=== PATIENT | female | born 1950 | race Caucasian/White ===

== ENCOUNTER 2021-02-11 09:11 | Outpatient (REF) | payer MEDICARE, SELFPAY ==
--- NOTE | ~2021-02-11 | MR_ITS ---
EXAMINATION: MR CERVICAL SPINE WITHOUT CONTRAST CLINICAL INFORMATION: Stiff neck. Pain. COMPARISON: None TECHNIQUE: MRI of the cervical spine was obtained using routine sequences without contrast. FINDINGS: VERTEBRAL BODIES AND PARASPINAL SOFT TISSUES: The marrow signal is within normal limits. There is moderate edema in the right articular processes at the C4-C5 level, presumably reactive; minimal anterolisthesis also evident at this level. There are no compression fractures. Mild rightward curvature of the cervical spine centered at the C5 level. Moderate multilevel right-sided facet arthrosis most evident from the C3-C5 levels. The paraspinal soft tissues appear normal. The vertebral artery flow voids are maintained. The imaged lung apices are grossly clear. CERVICOMEDULLARY JUNCTION AND VISUALIZED POSTERIOR FOSSA: The craniovertebral junction and imaged portions of the brain parenchyma appear normal. No cord signal abnormality or syrinx is seen. SPINAL LEVELS: C2-C3: No significant disc pathology. Ankylosis of the left articular process. No central canal stenosis or foraminal narrowing. C3-C4: Very mild anterior subluxation with moderate hypertrophic facet arthropathy. No central canal stenosis or significant foraminal encroachment. No focal disc protrusion. C4-C5: Mild anterolisthesis and severe right-sided facet arthropathy with edema in the articular processes, presumably reactive. No central canal stenosis or foraminal narrowing. C5-C6: Broad-based posterior disc bulge and shallow central disc protrusion mildly impressing upon the ventral cord. Mild central canal stenosis with thickening of the ligamentum flavum posteriorly. Severe left foraminal narrowing. C6-C7: No disc pathology. No central canal stenosis or foraminal narrowing. C7-T1: Well-hydrated normal appearance of the disc without central canal stenosis. [id number] facet arthropathy. Patent foramina. MR/MR cervical spine wo con IMPRESSION: Mild central canal stenosis and severe left foraminal narrowing with a shallow central disc protrusion and disc-osteophyte complex at C5-C6. Mild anterolisthesis and severe right-sided facet arthropathy with reactive marrow edema in the articular processes at the C4-C5 level. Moderate facet degeneration at the C3-C4 level with a minimal anterolisthesis. No central canal stenosis or foraminal narrowing.
== END 2021-02-11 09:12 | disposition home or self-care (01) ==
LOC: HO.MRI 09:11
PROVIDERS: PCP Internal Medicine; Visit Provider Internal Medicine
DX: M54.12 Radiculopathy, cervical region (principal)
CPT/HCPCS: 72141

== ENCOUNTER 2021-07-09 10:49 | Outpatient (REF) | payer MEDICARE, SELFPAY ==
--- NOTE | ~2021-07-09 | MM_ITS ---
EXAMINATION: BONE DENSITOMETRY CLINICAL INDICATION: Other specified disorders of bone density and structure. COMPARISON: Baseline BD dated 06/17/2019. TECHNIQUE: Using a [employer] DXA System (software version: 13.1) manufactured by [employer], dual-energy x-ray absorptiometry was performed of the lumbar spine and left hip. The images are of good technical quality. Summary results are attached. FINDINGS: AP SPINE L1-L4: Current: BMD 1.407 g/cm2, Z-score 3.6, T-score 1.9, normal, 0.9% increase from baseline (<5% change is not significant). Baseline: BMD 1.394 g/cm2. LEFT FEMUR, NECK: Current: BMD 0.850 g/cm2, Z-score 0.4, T-score -1.4, osteopenia. Baseline: BMD 0.814 g/cm2. LEFT FEMUR, TOTAL: Current: BMD 0.881 g/cm2, Z-score 0.5, T-score -1.0, normal, 2.0% decrease from baseline (<5% change is not significant). Baseline: BMD 0.899 g/cm2. IDENTIFIED RISK FACTORS: Menopause, left oophorectomy. HISTORY OF FRACTURE: None listed. MEDICATIONS: Calcium supplements or multivitamin, vitamin D. MM/XR DEXA axial skeleton IMPRESSION: 1. DIAGNOSIS: Osteopenia based on the lowest T-score value of -1.4 in the femoral neck applying World Health Organization criteria. 2. 10-YEAR FRACTURE RISK PREDICTION, FRAX: Major osteoporotic fracture (clinical spine, forearm, hip or shoulder) 9.8%. Hip fracture 1.4%. 3. Treatment Recommendations: NOF guidelines recommend consideration for treatment in postmenopausal women and men age 50 and older presenting with the following: -A hip or vertebral (clinical or morphometric) fracture. -T-score less than or equal to -2.5 at the femoral neck or spine after appropriate evaluation to exclude secondary causes. -Low bone mass at the hip or spine and a 10-year fracture probability by FRAX of greater than or equal to 3% for hip fracture or greater than or equal to 20% for major osteoporotic fracture based on the [place] adapted WHO algorithm. 4. Other Recommendations: All treatment decisions require clinical judgment and consideration of individual patient factors, including patient preferences, comorbidities, previous drug use, risk factors not captured in the FRAX model (e.g. frailty, falls, vitamin D deficiency, increased bone turnover, interval significant decline in bone density) and possible under or overestimation of fracture risk by FRAX. Additional medical evaluation for secondary cause of low bone mineral density may be appropriate. FUTURE SCAN RECOMMENDATION: People with diagnosed cases of osteoporosis or at high risk for fracture should have regular bone mineral density tests. For patients eligible for Medicare, routine testing is allowed once every 2 years. The testing frequency can be increased to one year for patients who have rapidly progressing disease, those who are receiving or discontinuing medical therapy to restore bone mass, or have additional risk factors.
== END 2021-07-09 10:50 | disposition home or self-care (01) ==
LOC: HO.MAMMO 10:49
PROVIDERS: PCP Internal Medicine; Visit Provider Internal Medicine
DX: Z13.820 Encounter for screening for osteoporosis (principal); M85.80 Other specified disorders of bone density and structure, unspecified site; Z78.0 Asymptomatic menopausal state; Z79.899 Other long term (current) drug therapy
CPT/HCPCS: 77080

== ENCOUNTER 2021-09-05 08:43 | Outpatient (REF) | payer MEDICARE, SELFPAY ==
--- NOTE | ~2021-09-05 | US_ITS ---
EXAMINATION: US EXTRACRANIAL CAROTID DUPLEX, BILATERAL CLINICAL INFORMATION: Hyperlipidemia. COMPARISON: None TECHNIQUE: Real-time ultrasound and Doppler techniques (integrating B-mode 2-D vascular images, Doppler spectral analysis and color-flow Doppler imaging) were utilized to interrogate the extracranial carotid arteries, the vertebral arteries and proximal subclavian arteries bilaterally. The degree of stenosis is determined by criteria similar to NASCET. FINDINGS: Right Side: 1. There is no atherosclerotic plaque seen in the bifurcation/proximal ICA region. 2. The common carotid artery PSV proximally is 116 cm/s and distally 112 cm/s. 3. The proximal internal carotid artery velocities are 98 cm/s systolic and 24 cm/s diastolic. 4. The proximal external carotid artery PSV is 106 cm/s. 5. The vertebral artery shows antegrade flow. 6. The subclavian artery waveforms are normal. Left Side: 1. There is no atherosclerotic plaque seen in the bifurcation/proximal ICA region. 2. The common carotid artery PSV proximally is 109 cm/s and distally 97 cm/s. 3. The proximal internal carotid artery velocities are 80 cm/s systolic and 26 cm/s diastolic. 4. The proximal external carotid artery PSV is 104 cm/s. 5. The vertebral artery shows antegrade flow. 6. The subclavian artery waveforms are normal. US/US carotid duplex BI IMPRESSION: 1. RIGHT: Normal right internal carotid artery without atherosclerotic plaque or hemodynamically significant stenosis. 2. LEFT: Normal left internal carotid artery without atherosclerotic plaque or hemodynamically significant stenosis.
== END 2021-09-05 08:44 | disposition home or self-care (01) ==
LOC: HO.HMGCX 08:43
PROVIDERS: PCP Internal Medicine; Visit Provider Internal Medicine
DX: E78.5 Hyperlipidemia, unspecified (principal); R42 Dizziness and giddiness
CPT/HCPCS: 93880

== ENCOUNTER 2022-04-08 08:56 | Outpatient (REF) | payer MEDICARE, SELFPAY ==
[2022-04-08 11:35] LABS: Hemoglobin 13.3 g/dl (12.0-16.0); Mean Corpuscular HGB Conc 33.3 g/dl (31.0-35.0); Mean Corpuscular Hemoglobin 29.2 pg (27.0-33.0); Mean Corpuscular Volume 87.9 fL (80.0-98.0); Mean Platelet Volume 9.5 fL (9.4-12.3); Platelet Count 254 X10*3/uL (160-400); Red Blood Count 4.55 X10*6/uL (4.20-5.50); Red Cell Distribution Width 12.6 % (11.0-16.0); White Blood Count 5.1 X10*3/uL (4.8-10.8)
[2022-04-08 11:49] LABS: Appearance Urine HAZY; Color Urine YELLOW; Glucose Urine UA NEG (NEG); Leukocyte Esterase Urine NEG (NEG); Nitrite Urine NEG (NEG); PH 7.5 (5.0-8.0); Urine Blood NEG (NEG); Urine Ketones NEG (NEG); Urine Protein NEG (NEG-TRACE)
[2022-04-08 11:58] LABS: Alanine Aminotransferase 35 U/L (0-31); Albumin Level 4.5 g/dL (3.5-5.0); Alkaline Phosphatase 44 U/L (39-117); Anion Gap 9 (12-20); Aspartate Amino Transferase 29 U/L (5-31); Bilirubin Total 0.5 mg/dL (0.0-1.0); Blood Urea Nitrogen 13 mg/dL (9-16); Calcium 9.3 mg/dL (8.4-10.2); Carbon Dioxide 29 mmol/L (22-29); Chloride 107 mmol/L (96-108); Cholesterol 206 mg/dL; Estimated Glomerular Filt Rate > 60; Glucose Fasting 95 mg/dL (60-99); HDL Cholesterol 71 mg/dL; LDL Cholesterol Calculated 123 mg/dl; Potassium 4.8 mmol/L (3.3-5.1); Sodium 140 mmol/L (135-145); Total Protein 7.1 g/dL (6.5-8.0); Triglycerides 64 mg/dL
[2022-04-08 12:03] LABS: TSH reflex Free T4 0.61 uIU/mL (0.32-4.0)
== END 2022-04-08 08:57 | disposition home or self-care (01) ==
LOC: HO.HMGCLDS 08:56
PROVIDERS: PCP Internal Medicine; Visit Provider Internal Medicine
DX: E78.5 Hyperlipidemia, unspecified (principal)
CPT/HCPCS: 36415; 80053; 80061; 81003; 84443; 85027

== ENCOUNTER 2023-06-11 09:00 | Outpatient (AMB) | payer MEDICARE, SELFPAY ==
--- NOTE | 2023-06-11 09:10 | A.OFFPC_ITS ---
Vital Signs 06/11/23 09:12 Height 5 ft 2 in Weight 145 lb BMI 26.5 BP 118/76 Blood Pressure Location Lt brachial Position Sitting Pulse 78 Pulse Source Pulse Oximeter Pulse Oximetry (%) 98 Oxygen Delivery Method Room Air Intake Visit Reasons: annual Intake Note: Pt is here today for PE. Allergies No Known Allergies Allergy (Verified 06/11/23 09:17) Medication List - Last Reconciled 06/11/23 by Lala Jama MD acyclovir 5% 1 appl topical 6XD atorvastatin 20 mg PO DAILY denosumab 60 mg subcut [id number] fluoxetine 10 mg PO DAILY meclizine (Medi-Meclizine) 25 mg PO TID methenamine hippurate 1 g PO BID pantoprazole 20 mg PO DAILY zolpidem 5 mg PO BEDTIME Tobacco use date assessed: 06/11/23 Fall risk assessment: No Falls in past year Last assessed Fall Risk: 06/11/23 Dental Screening Dental Screen Date: 06/11/23 Did you have a dental visit in the last 12 months?: Yes Did you have a dental problem in the last 6 months where you did not have access to dental care?: No Was dental information given to patient?: Patient has dentist HPI annual HPI Details Pt presents for PE. She complains of chronic lower back pain worse when walking or standing for long time. She denied radiating to lower extremities. She has been taking but Doppler so for chronic gastritis and hyperlipidemia is controlled on atorvastatin. Patient has been getting Prolia injection for osteopenia for 2 years and will have DEXA scheduled in June. [facility] Medical History (Updated 06/11/23 @ 10:04 by Lala Jama MD) Annual physical exam Anxiety and depression Cervical radiculopathy (~08/20/21) Hyperlipidemia Lip lesion Neck pain Nephrolithiasis Osteopenia Sciatica Screen for colon cancer Vertigo Surgical History H/O colonoscopy History of back surgery History of section History of oophorectomy, unilateral Family History Father Heart attack Mother Cancer Brother No problems noted. Son No problems noted. Daughter No problems noted. Social History Housing: House Alcohol intake: never Patient Tobacco Use Status: Never used Tobacco e-Cigarette/Vaping Use: Never Used Current occupational status: retired Cognitive needs: No Hearing needs: No Vision needs: Yes Questionnaire PHQ-9 Over the last 2 weeks, how often have you been bothered by any of the following problems? 1. Little interest or pleasure in doing things: not at all 2. Feeling down, depressed, or hopeless: not at all 3. Trouble falling or staying asleep, or sleeping too much: not at all 4. Feeling tired or having little energy: not at all 5. Poor appetite or overeating: not at all 6. Feeling bad about yourself - or that you are a failure or have let yourself or your family down: not at all 7. Trouble concentrating on things, such as reading the newspaper or watching television: not at all 8. Moving or speaking so slowly that other people could have noticed. Or the opposite - being so fidgety or restless that you have been moving around a lot more than usual: not at all 9. Thoughts that you would be better off or of hurting yourself in some way: not at all Total score: 0 Depression Screening Interpretation: Negative Source: Developed by Drs. Lyle Ramirez, Francisca Jonas, Nicolas Arias and colleagues, with an educational galen from [employer]. Thrive Questionnaire Date Thrive assessed: 06/11/23 I am a: Patient What is your living situation today?: I have a steady place to live Within the past 12 months, did the food you bought not last and you didn't have the money to get more?: Never true Within the past 12 months, did you worry whether your food would run out before you got money to buy more?: Never true Do you have trouble paying for medicines?: No Do you have trouble getting transportation to medical appointments?: No Do you have trouble paying your heating and electricity bill?: No Do you have trouble taking care of your child, family member or friend?: No Do you have trouble with day-to-day activities such as bathing, preparing meals, shopping, managing finances, etc.?: No Are you currently unemployed and looking for a job?: No Are you interested in more education?: No Please select the resources that you would like help with: None Currently or been in a relationship where the following occur: no concerns reported AUDIT C Alcohol Use Questionnaire (AUDIT-C) 1. How often do you have a drink containing alcohol?: Never 3. How often do you have six or more drinks on one occasion?: Never Total Score: 0 MICHEL-7 AMB Questionnaire MICHEL-7 Date MICHEL - 7 assessed: 06/11/23 Feeling nervous, anxious, or on edge: 0 = Not at all Not being able to stop or control worryin = Not at all Worrying too much about different things: 0 = Not at all Trouble relaxin = Not at all Being so restless that it is hard to sit still: 0 = Not at all Becoming easily annoyed or irritable: 0 = Not at all Feeling afraid as if something awful might happen: 0 = Not at all Total MICHEL-7 score (0-4 normal; 5-9 mild; 10-14 moderate; 15-21 severe): 0 Source: Developed by Drs. Lyle Ramirez, Francisca Jonas, Nicolas Arias and colleagues, with an educational galen from [employer]. Review of Systems Const All systems reviewed & are unremarkable except as noted in HPI and below Reports no additional complaints Eyes Reports no additional complaints ENT Reports no additional complaints Card Reports no additional complaints Resp Reports no additional complaints GI Reports no additional complaints Reports no additional complaints Physical exam (Primary Care) Vital Signs: Last Vital Signs Pulse 78 06/11/23 09:12 BP 118/76 06/11/23 09:12 Pulse Ox 98 06/11/23 09:12 Oxygen Delivery Method Room Air 06/11/23 09:12 BMI result Body Mass Index 26.5 Tobacco/Smoking Status: Tobacco use Status Tobacco use date assessed 06/11/23 06/11/23 09:21 Patient Tobacco Use Status Never used Tobacco 06/11/23 09:10 e-Cigarette/Vaping Use Never Used 06/11/23 09:10 PHQ-9: PHQ-9 Score PHQ-9: Total score 0 06/11/23 09:23 Depression Screening Interpretation: Negative Thrive Assessment: Date of Thrive Assessment Date Thrive assessed 06/11/23 06/11/23 09:23 Currently or been in a relationship where the following occur: no concerns reported Const General: no acute distress [facility] Head: Yes normal to inspection Ears: hearing grossly normal bilaterally Face and sinus: Yes normal facial exam Mouth: Normal oral and palatal mucosa present Teeth and gingiva: dentition normal Throat: Yes posterior oropharynx normal Eyes General: appearance normal, both eyes and all related structures Pupils: Equal, round and reactive pupils present Neck Neck: Yes no lymphadenopathy and Yes supple Resp Effort & Inspection: normal respiratory effort Auscultation: clear to auscultation bilaterally Cardio Rhythm: regular rhythm Heart sounds: S1 normal heart sound present and S2 normal heart sound present GI Inspection: Yes normal to inspection Palpation (GI): Soft to palpation Percussion: Yes normal to percussion Auscultation: normal bowel sounds Neuro Cranial nerves: Yes Equal, round and reactive pupils present Extrem General: Yes no clubbing, cyanosis or edema Assessment and Plan Assessment & Plan (1) Annual physical exam: Code(s): Z00.00 - Encounter for general adult medical examination without abnormal findings Plan: Well-balanced diet regular exercise discussed with the patient. She had DEXA in June and will schedule mammogram. Patient is up-to-date with colonoscopy (2) Lower back pain: Code(s): M54.50 - Low back pain, unspecified Plan: For chronic lower back pain she will schedule an appointment for PT at [facility] . Patient will schedule appointment with Dr. Ridley if not improved after physical therapy (3) Hyperlipidemia: Code(s): E78.5 - Hyperlipidemia, unspecified Plan: Continue statin (4) Anxiety and depression: Code(s): F41.9 - Anxiety disorder, unspecified; F32.9 - Major depressive disorder, single episode, unspecified Plan: Continue fluoxetine (5) Osteopenia: Comment: DEXA 05/2019 osteopenia, Prolia inj Code(s): M85.80 - Other specified disorders of bone density and structure, unspecified site Plan: Continue Prolia vitamin-D supplement and check DEXA in June Orders: Orders XR DEXA appendicular skeleton Today Z00.00 - Encounter for general adult medical examination without abnormal findings PT Evaluation and Treatment Today M54.50 - Low back pain, unspecified [facility] [place]. Panel Fast 365 Days E78.5 - Hyperlipidemia, unspecified, M85.80 - Other specified disorders of bone density and structure, unspecified site, Z00.00 - Encounter for general adult medical examination without abnormal findings Lipid Panel 365 Days E78.5 - Hyperlipidemia, unspecified, M85.80 - Other specified disorders of bone density and structure, unspecified site, Z00.00 - Encounter for general adult medical examination without abnormal findings TSH reflex Free T4 365 Days E78.5 - Hyperlipidemia, unspecified, M85.80 - Other specified disorders of bone density and structure, unspecified site, Z00.00 - Encounter for general adult medical examination without abnormal findings Vitamin D 25-OH Total 365 Days E78.5 - Hyperlipidemia, unspecified, M85.80 - Other specified disorders of bone density and structure, unspecified site, Z00.00 - Encounter for general adult medical examination without abnormal findings Complete Blood Count Auto Diff 365 Days E78.5 - Hyperlipidemia, unspecified, M85.80 - Other specified disorders of bone density and structure, unspecified site, Z00.00 - Encounter for general adult medical examination without abnormal findings Medications: Refilled denosumab 60 mg subcut [id number] 1 mL 1RF Coding Level of Care Code Est Pt Prev Care >65y(58524) Diagnoses Annual physical exam Z00.00 Lower back pain M54.50 Hyperlipidemia E78.5 Anxiety and depression F41.9; F32.9 Osteopenia M85.80
[2023-06-11 09:12] VITALS: BP 118/76; PULSE 78; O2SAT 98; BMI 26.5
== END 2023-06-11 10:05 | disposition home or self-care (01) ==
PROVIDERS: PCP Internal Medicine; Visit Provider Internal Medicine
DX: M85.80 Other specified disorders of bone density and structure, unspecified site (principal); M54.50 Low back pain, unspecified; F32.9 Major depressive disorder, single episode, unspecified; F41.9 Anxiety disorder, unspecified; Z68.26 Body mass index [BMI] 26.0-26.9, adult; E78.5 Hyperlipidemia, unspecified
CPT/HCPCS: 99214

== ENCOUNTER 2023-07-02 09:45 | Outpatient (AMB) | payer MEDICARE, SELFPAY ==
[2023-07-02 09:47] VITALS: BP 124/78; PULSE 75; O2SAT 98; BMI 26.5
--- NOTE | 2023-07-02 09:47 | A.OFFPC_ITS ---
Vital Signs 07/02/23 09:47 Height 5 ft 2 in Weight 145 lb BMI 26.5 BP 124/78 Blood Pressure Location Lt brachial Position Sitting Pulse 75 Pulse Source Pulse Oximeter Pulse Oximetry (%) 98 Oxygen Delivery Method Room Air Intake Visit Reasons: Follow up after walk in/lump on hand Intake Note: Pt is here today for a follow up visit after being seen in a walk in. Pt fell down the stairs and injured her R arm.Pt has a lump on her L arm. Allergies No Known Allergies Allergy (Verified 07/02/23 09:53) Medication List - Last Reconciled 07/02/23 by Lala Jama MD acyclovir 5% 1 appl topical 6XD atorvastatin 20 mg PO DAILY denosumab 60 mg subcut [id number] fluoxetine 10 mg PO DAILY meclizine (Medi-Meclizine) 25 mg PO TID methenamine hippurate 1 g PO BID pantoprazole 20 mg PO DAILY zolpidem 5 mg PO BEDTIME Tobacco use date assessed: 06/11/23 HPI Follow up after walk in/lump on hand HPI Details Pt presents for f/u after a fall 2 weeks ago, no head injury, no LOC. Pt c/o R arm bruises and hemangioma slowly healing. Pt c/o L anterior varicose vein getting painful and larger. [facility] Medical History Annual physical exam Anxiety and depression Cervical radiculopathy (~08/20/21) Hyperlipidemia Lip lesion Neck pain Nephrolithiasis Osteopenia Sciatica Screen for colon cancer Vertigo Surgical History H/O colonoscopy History of back surgery History of section History of oophorectomy, unilateral Family History Father Heart attack Mother Cancer Brother No problems noted. Son No problems noted. Daughter No problems noted. Social History Housing: House Alcohol intake: never Patient Tobacco Use Status: Never used Tobacco e-Cigarette/Vaping Use: Never Used Current occupational status: retired Cognitive needs: No Hearing needs: No Vision needs: Yes Questionnaire Thrive Questionnaire Date Thrive assessed: 06/11/23 MICHEL-7 AMB Questionnaire MICHEL-7 Date MICHEL - 7 assessed: 06/11/23 Source: Developed by Drs. Lyle Ramirez, Francisca Jonas, Nicolas Arias and colleagues, with an educational galen from [employer]. Review of Systems Const All systems reviewed & are unremarkable except as noted in HPI and below Reports no additional complaints Eyes Reports no additional complaints ENT Reports no additional complaints Card Reports no additional complaints Resp Reports no additional complaints GI Reports no additional complaints Physical exam (Primary Care) Vital Signs: Last Vital Signs Pulse 75 07/02/23 09:47 BP 124/78 07/02/23 09:47 Pulse Ox 98 07/02/23 09:47 Oxygen Delivery Method Room Air 07/02/23 09:47 BMI result Body Mass Index 26.5 Tobacco/Smoking Status: Tobacco use Status Tobacco use date assessed 06/11/23 07/02/23 09:52 Patient Tobacco Use Status Never used Tobacco 07/02/23 09:52 e-Cigarette/Vaping Use Never Used 07/02/23 09:52 Thrive Assessment: Date of Thrive Assessment Date Thrive assessed 06/11/23 07/02/23 09:52 Const General: no acute distress HENMT Face and sinus: Yes normal facial exam Eyes General: appearance normal, both eyes and all related structures Neck Neck: Yes supple Resp Effort & Inspection: normal respiratory effort Auscultation: clear to auscultation bilaterally Cardio Rhythm: regular rhythm Heart sounds: S1 normal heart sound present and S2 normal heart sound present Extrem Other: R inner forearm hemangioma 5cm x 5 cm and bruising, R elbow and shoulder with FROM. Assessment and Plan Assessment & Plan (1) Varicose vein of leg: Code(s): I83.90 - Asymptomatic varicose veins of unspecified lower extremity Plan: refer to vascular surgery (2) Multiple bruises: Code(s): T07.XXXA - Unspecified multiple injuries, initial encounter Plan: Fall prevention discussed with the patient Orders: Referrals Vascular Surgery Referral I83.90 - Asymptomatic varicose veins of unspecified lower extremity Coding Level of Care Code Est Pt Level 3 (10732) Diagnoses Varicose vein of leg I83.90 Multiple bruises T07.XXXA
== END 2023-07-02 10:39 | disposition home or self-care (01) ==
PROVIDERS: PCP Internal Medicine; Visit Provider Internal Medicine
DX: I83.90 Asymptomatic varicose veins of unspecified lower extremity (principal); T07.XXXA Unspecified multiple injuries, initial encounter
CPT/HCPCS: 99213

== ENCOUNTER 2023-07-02 18:00 | Outpatient (REF) | payer MEDICARE, SELFPAY ==
--- NOTE | ~2023-07-02 | MR_ITS ---
EXAMINATION: MR LUMBAR SPINE WITHOUT CONTRAST CLINICAL INFORMATION: 72-year-old with lumbar radiculopathy. Self-reported midline low back pain and history of prior surgery. COMPARISON: None available. TECHNIQUE: MRI of the lumbar spine was obtained using routine sequences without contrast. FINDINGS: Coronal Alignment: Szxo-jl-btkjhhzm mid lumbar levoscoliosis. Sagittal Alignment: 4 mm of grade 1 degenerative spondylolisthesis at L4-L5 is noted without spondylolysis. Lordotic curvature is maintained centered at L3-L4. Lumbosacral Junction: Normal. There are 5 fdh-ltz-okbgmbe lumbar-type vertebral bodies. Vertebral Bodies: Vertebral body heights are well-maintained. Disc Spaces and Endplates: Xpyg-rv-wuazifke disc space height loss at L5-S1 with disc desiccation, endplate irregularity and spondylosis. Minimal intradiscal vacuum disc phenomenon suspected. Disc desiccation at L4-L5 without significant disc space height loss. Mild spondylosis. Mild disc volume loss at L3-L4 with disc desiccation and minor spondylosis. Disc desiccation at L2-L3 with moderate spondylosis asymmetric to the right without significant disc space height loss with bridging osteophytosis noted. Spinal Canal: No abnormal developmental findings. Bone Marrow: Mild type I degenerative marrow signal changes seen along the endplates posteriorly at L3-L4. No suspicious marrow replacing process or other bone marrow edema. Scattered foci of focal fatty marrow replacement noted. Conus Medullaris: Terminates at L2. Morphology and signal is normal. Intradural Nerve Roots: Crowding of the intradural nerve roots at L3-L4 and L4-L5 consistent with spinal stenosis. Otherwise grossly unremarkable. L5-S1: Chronic post laminectomy changes are noted on the left. There is posterolateral disc osteophyte complex on the left and a small right subarticular to foraminal disc protrusion. No significant spinal canal stenosis. Moderate bilateral neural foraminal stenosis is noted, with impingement on the exiting left L5 nerve root. L4-L5: Unroofing of the posterior disc margin is noted, with pseudodisc bulging and small left-sided foraminal/extra foraminal disc protrusion and right-sided extraforaminal/foraminal disc protrusion. There is flattening of the dural sac and there is ligamentum flavum thickening with partial ossification of the ligamentum flavum on the right. There is mcrfsbvq-rj-gqlugi facet arthrosis, left more than right with interspinous ligament degeneration. There is idceggqf-pc-gzdawa central spinal canal stenosis with crowding of the intradural nerve roots, with the moderate-to- severe bilateral subarticular recess stenosis with encroachment on the traversing L5 nerve roots bilaterally. Mild left-sided neural foraminal narrowing noted without neural impingement. Otrz-ay-pinljacw right-sided neural foraminal narrowing noted with right lateral disc protrusion contacting the exiting right L4 nerve root. L3-L4: Concentric disc bulging is noted with flattening of the dural sac. Ligamentum flavum thickening with interspinous ligament degeneration is noted with lkobbefj-ul-yekele facet arthropathy right more than left. Severe central spinal canal stenosis is noted, with severe subarticular recess stenosis, with the marked crowding of the intradural nerve roots. There is ikgp-aa-balqjmli bilateral neural foraminal stenosis without definite neural impingement. L2-L3: Small left-sided foraminal/extraforaminal disc protrusion without neural impingement. Mild facet arthropathy on the left and ligament of flavum thickening noted with interspinous ligament degeneration. No significant spinal canal or neuroforaminal stenosis. L1-L2: Normal annular contour. Minor facet arthropathy noted on the left. No canal or neuroforaminal stenosis. Paravertebral and Included Extraspinal Soft Tissues: Jpvmbnos-do-zmsvwv posterior paraspinal muscle volume loss in the lower lumbar region. Otherwise the paravertebral soft tissues appear grossly unremarkable. MR/MR lumbar spine wo con IMPRESSION: 1.Fvqs-iy-vbhgsfcu mid lumbar levoscoliosis, with grade 1 degenerative spondylolisthesis at L4-L5 without spondylolysis. 2.Multilevel discogenic degenerative changes and spondylosis, with multilevel disc bulging and disc protrusions as detailed by level above with multilevel bilateral facet arthropathy and interspinous ligament degeneration. 3. Severe spinal canal stenosis at L3-L4 and moderate-to- severe spinal canal stenosis at L4-L5 with crowding of the intradural nerve roots and subarticular recesses. 4. Postoperative changes on the left at L5-S1 with posterolateral disc osteophyte complex on the left and small right subarticular to foraminal disc protrusion at this level with moderate bilateral neural foraminal stenosis and impingement on the exiting left L5 nerve root. 5. Zphp-er-ltiozwnv bilateral neural foraminal stenosis at L3-L4 and msji-wv-tubvpgpa right-sided neural foraminal stenosis at L4-L5 with right lateral disc protrusion contacting the exiting right L4 nerve root.
== END 2023-07-02 18:01 | disposition home or self-care (01) ==
LOC: HO.MRI 18:00
PROVIDERS: Visit Provider Internal Medicine
DX: M54.16 Radiculopathy, lumbar region (principal)
CPT/HCPCS: 72148

== ENCOUNTER 2023-07-14 09:07 | Outpatient (REF) | payer MEDICARE, SELFPAY ==
--- NOTE | ~2023-07-14 | MM_ITS ---
EXAMINATION: BONE DENSITOMETRY CLINICAL INDICATION: Other specified disorders of bone density and structure, unspecified site. COMPARISON: Previous BD dated 07/09/2021 and baseline BD dated 06/17/2019. TECHNIQUE: Using a [employer] DXA System (software version: 13.1) manufactured by [employer], dual-energy x-ray absorptiometry was performed of the lumbar spine and left hip. The images are of good technical quality. Summary results are attached. FINDINGS: LEFT FEMUR, NECK: Current: BMD 0.848 g/cm2, Z-score 0.5, T-score -1.4, osteopenia. Prior: BMD 0.850 g/cm2. Baseline: BMD 0.814 g/cm2. LEFT FEMUR, TOTAL: Current: BMD 0.900 g/cm2, Z-score 0.8, T-score -0.9, normal, 2.2% increase from previous, 0.1% increase from baseline (<5% change is not significant). Prior: BMD 0.881 g/cm2. Baseline: BMD 0.899 g/cm2. AP SPINE L1-L4: Current: BMD 1.437 g/cm2, Z-score 3.9, T-score 2.1, normal, 2.1% increase from previous, 3.1% increase from baseline (<5% change is not significant). Prior: BMD 1.407 g/cm2. Baseline: BMD 1.394 g/cm2. IDENTIFIED RISK FACTORS: Menopause, left oophorectomy. HISTORY OF FRACTURE: None listed. MEDICATIONS: Calcium supplements or multivitamin, vitamin D, Prolia. MM/XR DEXA axial skeleton IMPRESSION: 1. DIAGNOSIS: Osteopenia based on the lowest T-score value of -1.4 in the femoral neck applying World Health Organization criteria. 2. 10-YEAR FRACTURE RISK PREDICTION, FRAX: Not performed in this patient on estrogen or bone building treatments. 3. Treatment Recommendations: NOF guidelines recommend consideration for treatment in postmenopausal women and men age 50 and older presenting with the following: -A hip or vertebral (clinical or morphometric) fracture. -T-score less than or equal to -2.5 at the femoral neck or spine after appropriate evaluation to exclude secondary causes. -Low bone mass at the hip or spine and a 10-year fracture probability by FRAX of greater than or equal to 3% for hip fracture or greater than or equal to 20% for major osteoporotic fracture based on the [place] adapted WHO algorithm. 4. Other Recommendations: All treatment decisions require clinical judgment and consideration of individual patient factors, including patient preferences, comorbidities, previous drug use, risk factors not captured in the FRAX model (e.g. frailty, falls, vitamin D deficiency, increased bone turnover, interval significant decline in bone density) and possible under or overestimation of fracture risk by FRAX. Additional medical evaluation for secondary cause of low bone mineral density may be appropriate. FUTURE SCAN RECOMMENDATION: People with diagnosed cases of osteoporosis or at high risk for fracture should have regular bone mineral density tests. For patients eligible for Medicare, routine testing is allowed once every 2 years. The testing frequency can be increased to one year for patients who have rapidly progressing disease, those who are receiving or discontinuing medical therapy to restore bone mass, or have additional risk factors.
== END 2023-07-14 09:08 | disposition home or self-care (01) ==
LOC: HO.MAMMO 09:07
PROVIDERS: PCP Internal Medicine; Visit Provider Internal Medicine
DX: Z13.820 Encounter for screening for osteoporosis (principal); Z78.0 Asymptomatic menopausal state; M85.80 Other specified disorders of bone density and structure, unspecified site
CPT/HCPCS: 77080

== ENCOUNTER → 2023-07-14 09:09 | Outpatient (BNV) | payer MEDICARE, SELFPAY | PROVIDERS: PCP Internal Medicine; Visit Provider Radiology Diagnostic Radiology | DX: M85.80 Other specified disorders of bone density and structure, unspecified site (principal) | CPT/HCPCS: 77080 ==

== ENCOUNTER 2023-08-20 14:18 | Outpatient (AMB) | payer MEDICARE, SELFPAY ==
[2023-08-20 15:06] VITALS: BMI 26.5
--- NOTE | 2023-08-20 15:06 | A.OFFVIS_ITS ---
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 Pt states it gets big when she is on her feet, has not tried compression socks yet. 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 Complaints include pain over varicosities, swelling of lower extremities, cramping, fatigue, and heaviness of the lower extremities. It has been affecting there daily activities including walking. It is noted more so in left leg. In particular she is concerned about a left tibial varicose veins Patient denies any previous venous surgery or injections. Patient denies any history of DVT/ PE. Patient denies any history of phlebitis. Trial of compression includes - compression ymuz-wks-zneunwl They now present for vascular evaluation regarding their varicose veins. [facility] Medical History Lip lesion Vertigo Annual physical exam Screen for colon cancer Cervical radiculopathy (~08/20/21) Neck pain Sciatica Nephrolithiasis Osteopenia Anxiety and depression Hyperlipidemia Surgical History History of oophorectomy, unilateral History of back surgery History of section H/O colonoscopy Family History Father Heart attack Mother Cancer Brother No problems noted. Son No problems noted. Daughter No problems noted. Social History Housing: House Alcohol intake: never Patient Tobacco Use Status: Never used Tobacco e-Cigarette/Vaping Use: Never Used Current occupational status: retired Cognitive needs: No Hearing needs: No Vision needs: Yes Review of Systems Const Reports as per HPI ENT Reports no additional complaints Card Denies chest pain, Denies chest pain at rest and Denies chest pain with activity Resp Denies chest congestion and Denies cough GI Reports no additional complaints Musc Details: pain over varicosities, aching of lower extremities, swelling, cramping, heaviness and tiredness, itching Denies abnormal gait Skin/Breast Reports pruritus and Denies wounds Neuro Reports no additional complaints and Denies abnormal gait Psych Denies no additional complaints Physical Exam Vital Signs: BMI result Body Mass Index 26.5 Const General: cooperative, healthy appearing and comfortable Orientation/consciousness: oriented to person, oriented to place and oriented to time Neck Carotids: no bruits Chest Chest palpation & inspection: normal inspection of the chest and normal palpation of entire chest wall Resp Effort & Inspection: normal respiratory effort and able to speak in complete sentences Cardio Rate: regular rate Heart sounds: S1 normal heart sound present and S2 normal heart sound present Peripheral pulses: Peripheral pulses 2+ throughout GI Inspection: Yes normal to inspection Skin Other: +2 edema, large rope-like varicosities greater than 4 mm - left pretibial surface General skin exam: dry skin Neuro General: oriented to person, oriented to place and oriented to time Extrem Right lower extremity: full ROM, normal capillary refill and edema Left lower extremity: full ROM, normal capillary refill and edema Psych Mental Status: mental status grossly normal Assessment & Plan Assessment & Plan (1) Varicose veins of left lower extremity with inflammation: Code(s): I83.12 - Varicose veins of left lower extremity with inflammation Plan: In short, the patient has evidence of venous insufficiency. I have discussed the pathophysiology with the patient. In addition I have provided informa tional material regarding venous disease to the patient. We have discussed conservative measures including compression, elevation, and exercise. I have also provided a handout regarding appropriate use of compression stockings and where to purchase good compression stockings as well. I have taken the liberty of ordering venous insufficiency testing with the patient. They will follow up with me after testing. The patient had an opportunity to ask questions regarding the treatment plan. All questions were answered. Imaging studies, laboratory studies and physical exam results were discussed and reviewed in detail. No major barriers to understanding were identified. The patient expressed understanding and agreement with the above treatment plan. The patient is aware they should con tact our office by phone for worsening of the current condition or the appearance of new symptoms. Thank you for allowing me to participate in the vascular care of this patient. If you have any questions or concerns regarding the treatment for the above condition please do not hesitate to contact me. The office telephone contact is [phone]. This note is constructed using voice recognition software. While every effort has been made to ensure accuracy, bacteriology teacher errors may have been included. Thank you for allowing me to participate in the care of your patient. Yours sincerely, Mario Morrell MD, FACS, R.P.V.I. Orders: Orders US venous duplex LE BI 1 Week I83.12 - Varicose veins of left lower extremity with inflammation Coding Level of Care Code New Pt Level 4 (93906) Diagnoses Varicose veins of left lower extremity with inflammation I83.12
== END 2023-08-20 15:18 | disposition home or self-care (01) ==
PROVIDERS: PCP Internal Medicine; Visit Provider Surgery Vascular Surgery
DX: I83.12 Varicose veins of left lower extremity with inflammation (principal)
CPT/HCPCS: 99203

== ENCOUNTER → 2023-08-20 14:18 | Outpatient (BNVA) | payer MEDICARE, SELFPAY | PROVIDERS: PCP Internal Medicine; Visit Provider Surgery Vascular Surgery ==

== ENCOUNTER 2023-09-14 10:21 | Outpatient (REF) | payer MEDICARE, SELFPAY ==
--- NOTE | ~2023-09-14 | US_ITS ---
EXAMINATION: US LOWER EXTREMITY VENOUS (REFLUX EXAM), BILATERAL CLINICAL INDICATION: Chronic venous insufficiency with lower extremity varicose veins with inflammation COMPARISON: None. TECHNIQUE: Color flow triplex imaging and compression Doppler was performed to evaluate both the deep and the superficial systems bilaterally. To evaluate the superficial system, the examination was performed in the upright position. Color-flow Doppler ultrasound and compression ultrasound were utilized. In addition, maneuvers were utilized to demonstrate reflux. FINDINGS: 1. DEEP VENOUS ULTRASOUND OF THE RIGHT LOWER EXTREMITY: Common Femoral Vein: Compressible, normal respiratory variation and augmented flow. Femoral Vein: Compressible, normal color flow and augmentation. Popliteal Vein: Compressible, normal augmentation. Deep Reflux: There is no evidence of reflux in the deep system in either the common femoral vein or the popliteal vein. There is no evidence of a Wise's cyst. 2. SUPERFICIAL ULTRASOUND WITH DOPPLER OF RIGHT LOWER EXTREMITY: GREAT SAPHENOUS VEIN: Saphenofemoral Junction: 0.4 cm; Reflux: 0 ms Proximal Thigh: 0.3 cm; Reflux: 0 ms Mid Thigh: 0.3 cm; Reflux: 0 ms Above Knee: 0.2 cm; Reflux: 0 ms At Knee: 0.2 cm; Reflux: 0 ms Below Knee: 0.2 cm; Reflux: 2636 ms Mid Calf: 0.2 cm; Reflux: 0 ms Ankle: 0.2 cm; Reflux: 0 ms DUPLICATED MEDIAL GREAT SAPHENOUS VEIN: Diameter: None imaged Reflux: NA DUPLICATED LATERAL GREAT SAPHENOUS VEIN: Diameter: 0.3 cm Reflux: None SMALL SAPHENOUS VEIN: Proximal: 0.2 cm; Reflux: 0 ms Mid: 0.2 cm; reflux: 2036 ms Distal: 0.2 cm; Reflux: 0 ms VEIN OF GIACOMINI: Size: NA Reflux: NA PERFORATORS: Location: None imaged Size: NA Reflux: NA VARICOSITIES: Location: Mid thigh Size: 0.3 cm Reflux: None 3. DEEP VENOUS ULTRASOUND OF THE LEFT LOWER EXTREMITY: Common Femoral Vein: Compressible, normal respiratory variation and augmented flow. Femoral Vein: Compressible, normal color flow and augmentation. Popliteal Vein: Compressible, normal augmentation. Deep Reflux: There is no evidence of reflux in the deep system in either the common femoral vein or the popliteal vein. There is no evidence of a Wise's cyst. 4. SUPERFICIAL ULTRASOUND WITH DOPPLER OF LEFT LOWER EXTREMITY: GREAT SAPHENOUS VEIN: Saphenofemoral Junction: 0.5 cm; Reflux: 0 ms Proximal Thigh: 0.2 cm; Reflux: 0 ms Mid Thigh: 0.3 cm; Reflux: 2724 ms Above Knee: 0.4 cm; Reflux: 2452 ms At Knee: 0.4 cm; Reflux: 0 ms Below Knee: 0.4 cm; Reflux: 1276 ms Mid Calf: 0.2 cm; Reflux: 0 ms Ankle: 0.3 cm; Reflux: 0 ms DUPLICATED MEDIAL GREAT SAPHENOUS VEIN: Diameter: None imaged Reflux: NA DUPLICATED LATERAL GREAT SAPHENOUS VEIN: Diameter: None imaged Reflux: NA SMALL SAPHENOUS VEIN: Proximal: 0.2 cm; Reflux: 2892 ms Mid: 0.2 cm; reflux: 2708 ms Distal: 0.2 cm; Reflux: 0 ms VEIN OF GIACOMINI: Size: NA Reflux: NA PERFORATORS: Location: None significant Size: NA Reflux: NA VARICOSITIES: Location: None Imaged Size: NA Reflux: NA US/US venous duplex LE BI IMPRESSION: Right: Segmental area of reflux seen in the great saphenous vein in the proximal calf and in the small saphenous vein in the mid calf Left: Segmental areas of reflux in the great saphenous vein in the mid and distal thigh and proximal calf. Reflux in the small saphenous vein.
== END 2023-09-14 10:22 | disposition home or self-care (01) ==
LOC: HO.US 10:21
PROVIDERS: Visit Provider Surgery Vascular Surgery
DX: I83.12 Varicose veins of left lower extremity with inflammation (principal)
CPT/HCPCS: 93970

== ENCOUNTER 2023-10-06 08:51 | Outpatient (AMB) | payer MEDICARE, SELFPAY ==
--- NOTE | 2023-10-06 08:55 | MHC.OFFVIS ---
Intake Vital Signs 10/06/23 09:00 Height 5 ft 2 in Weight 145 lb BMI 26.5 Intake Visit Reasons: fuVI US 09/14/23 Intake Note: PT here for US FU on 09/14/23 hx of VV left LE pre-tibial area w/discoloration Pt says that she is doing ok and is not experiencing any pain or swelling at the moment Allergies No Known Allergies Allergy (Verified 10/06/23 09:00) HPI fuVI US 09/14/23 HPI Details Very pleasant 73-year-old female presents for follow-up regarding venous insufficiency. She noted this left pretibial varicosity which has been a source of pain and discomfort for her. She is quite concerned about her lower extremities as her father did have significant varicosities as well. She has had a trial of compression stockings with minimal relief. She now presents for follow-up. [facility] Medical History Lip lesion Vertigo Annual physical exam Screen for colon cancer Cervical radiculopathy (~08/20/21) Neck pain Sciatica Nephrolithiasis Osteopenia Anxiety and depression Hyperlipidemia Surgical History History of oophorectomy, unilateral History of back surgery History of section H/O colonoscopy Family History Father Heart attack Mother Cancer Brother No problems noted. Son No problems noted. Daughter No problems noted. Social History Housing: House Alcohol intake: never Patient Tobacco Use Status: Never used Tobacco e-Cigarette/Vaping Use: Never Used Current occupational status: retired Cognitive needs: No Hearing needs: No Vision needs: Yes Review of Systems Const Reports as per HPI ENT Reports no additional complaints Card Denies chest pain, Denies chest pain at rest and Denies chest pain with activity Resp Denies chest congestion and Denies cough GI Reports no additional complaints Musc Details: pain over varicosities, aching of lower extremities, swelling, cramping, heaviness and tiredness, itching Denies abnormal gait Skin/Breast Reports pruritus and Denies wounds Neuro Reports no additional complaints and Denies abnormal gait Psych Denies no additional complaints Physical Exam Vital Signs: BMI result Body Mass Index 26.5 Const General: cooperative, healthy appearing and comfortable Orientation/consciousness: oriented to person, oriented to place and oriented to time Neck Carotids: no bruits Chest Chest palpation & inspection: normal inspection of the chest and normal palpation of entire chest wall Resp Effort & Inspection: normal respiratory effort and able to speak in complete sentences Cardio Rate: regular rate Heart sounds: S1 normal heart sound present and S2 normal heart sound present Peripheral pulses: Peripheral pulses 2+ throughout GI Inspection: Yes normal to inspection Skin Other: +2 edema, large rope-like varicosities greater than 4 mm left pretibial surface CEAP Classification C4 - skin color changes Ep - Etiology Primary As - superficial veins P - reflux General skin exam: dry skin Neuro General: oriented to person, oriented to place and oriented to time Extrem Right lower extremity: full ROM, normal capillary refill and edema Left lower extremity: full ROM, normal capillary refill and edema Psych Mental Status: mental status grossly normal Results Reviewed Results Reviewed: Brief summary of venous insufficiency testing is as follows: right great saphenous vein: Only focally positive right small saphenous vein: Only focally poss right accessory vein: none present left great saphenous vein: Positive left small saphenous vein: Positive left accessory vein: none present Please note there is no evidence of any venous aneurysms or significant tortuosity Assessment & Plan Assessment & Plan (1) Varicose veins of left lower extremity with inflammation: Code(s): I83.12 - Varicose veins of left lower extremity with inflammation Plan: This patient has varicose veins with inflammation. They continue to be a source of discomfort for the patient. The patient has tried conservative treatment with compression, leg elevation and exercise program for over 3 months time. They have been compliant with all treatment. This has provided minimal relief for the patient. I do not anticipate this course of treatment will alter the underlying etiology. The patient has been scheduled for lower extremity venous treatment inclusive of --- left great saphenous vein Cyanoacralate ablation. Risks, benefits, and complications of this procedure has been discussed in detail with the patient including but not limited to bleeding, infection, and the development of a DVT. The patient has demonstrated a clear understanding and has consented. We will schedule the patient as soon as she returns from [place] in February. She will call us upon her return.. Thank you for allowing us to participate in this patient's care. If there are any questions or concerns please do not hesitate to contact us. Coding Level of Care Code Est Pt Level 4 (04956) Diagnoses Varicose veins of left lower extremity with inflammation I83.12
[2023-10-06 09:00] VITALS: BMI 26.5
== END 2023-10-06 09:32 | disposition home or self-care (01) ==
PROVIDERS: PCP Internal Medicine; Visit Provider Surgery Vascular Surgery
DX: I83.12 Varicose veins of left lower extremity with inflammation (principal)
CPT/HCPCS: 99214

== ENCOUNTER → 2023-10-06 08:51 | Outpatient (BNVA) | payer MEDICARE, SELFPAY | PROVIDERS: PCP Internal Medicine; Visit Provider Surgery Vascular Surgery | DX: I83.12 Varicose veins of left lower extremity with inflammation (principal) | CPT/HCPCS: 99212 ==

== ENCOUNTER 2024-06-16 08:51 | Outpatient (AMB) | payer MEDICARE, SELFPAY ==
[2024-06-16 08:52] VITALS: BP 120/72; PULSE 67; O2SAT 95; BMI 26.9
--- NOTE | 2024-06-16 08:53 | AM.OFFVISMDC ---
Intake Vital Signs 06/16/24 08:52 Height 5 ft 2 in Weight 147 lb BMI 26.9 BP 120/72 Blood Pressure Location Lt brachial Position Sitting Pulse 67 Pulse Source Pulse Oximeter Pulse Oximetry (%) 95 Oxygen Delivery Method Room Air Intake Visit Reasons: SWV Allergies No Known Allergies Allergy (Verified 06/16/24 08:58) Medication List - Last Reconciled 06/16/24 by Lala Jama MD acyclovir 5% 1 appl topical 6XD atorvastatin 20 mg PO DAILY denosumab 60 mg subcut [id number] fluoxetine 10 mg PO DAILY meclizine (Medi-Meclizine) 25 mg PO TID methenamine hippurate 1 g PO BID pantoprazole 20 mg PO DAILY zolpidem 5 mg PO BEDTIME PRN HPI SWV HPI Details Initiated the conversation about Advanced Directives. Advanced Directives help? patients prepare for current and future decisions about their medical treatment? and place of care. Discussed with patient that it is a process where a patients? current condition and prognosis are reviewed, their wishes for information? regarding their illness are elicited, and likely medical dilemmas are presented? and options discussed. The form can be amended as needed, reviewed yearly and? make changes as needed IPPE/AWV ? year old presents? for her ? Annual? Wellness Visit, initial visit.? Medical / Social History Reviewed? Past Medical History ?Yes? . ? [place]? of Care / Care Team list updated ?Yes . ? Surgical/Hospitalization? History ?Yes . ? Current Medications? (including OTC and supplements) ?Yes . ? Family History ?Yes? . ? Tobacco? Control form ?Yes . ? AUDIT-C (Alcohol use) form? ?Yes . ? Illicit drug use in Social? History ?Yes . ? Current diagnosis of? depression? ?No ? Appropriate PHQ2/PHQ9? completed ?Yes . ? Data entered by ?Medical? Sheet Metal [employer] and reviewed by provider ? Fall Risk ? Fall? History? Have you had any falls with? injury in the past year? ?No . ? Have you had two or more? falls in the past year? ?No . ? Fall Risk Assessment: ?No? falls in the past year . ? HRA filled out by? the patient, reviewed by Provider and scanned. ? IPPE/AWV ? Balance? [place]? ?Yes . ? Tandem? walk ?Yes . ? Walk and? Turn ?Yes . ? Rise from? sit to stand ?Yes . ?Vision? Corrective? lens ?Yes ? Vision? screen ? Up-to-date, has an appointment [] for vision? screening and glaucoma screening ?Hearing? Whisper? test ?pass .? Initiated the conversation about Advanced Directives. Advanced Directives help? patients prepare for current and future decisions about their medical treatment? and place of care. Discussed with patient that it is a process where a patients? current condition and prognosis are reviewed, their wishes for information? regarding their illness are elicited, and likely medical dilemmas are presented? and options discussed. The form can be amended as needed, reviewed yearly and? make changes as needed Written? Plan?Completed. See Patient? Documents. [facility] Medical History Lip lesion Vertigo Annual physical exam Screen for colon cancer Cervical radiculopathy (~08/20/21) Neck pain Sciatica Nephrolithiasis Osteopenia Anxiety and depression Hyperlipidemia Surgical History History of oophorectomy, unilateral History of back surgery History of section H/O colonoscopy Family History Father Heart attack Mother Cancer Brother No problems noted. Son No problems noted. Daughter No problems noted. Social History Housing: House Alcohol intake: never Patient Tobacco Use Status: Never used Tobacco e-Cigarette/Vaping Use: Never Used Current occupational status: retired Cognitive needs: No Hearing needs: No Vision needs: Yes Questionnaire Medicare Wellness Checkup [age] What gender do you identify with?: female During the past 4 weeks, how much have you been bothered by emotional problems such as feeling anxious, depressed, irritable, sad or downhearted, and blue?: not at all During the past 4 weeks, has your physical & emotional health limited your social activities with family, friends, neighbors, or groups?: not at all During the past 4 weeks, how much bodily pain have you generally had?: no pain During the past 4 weeks, was someone available to help you if you needed & wanted help?: yes, as much as I wanted During the past 4 weeks, what was the hardest physical activity you could do for at least 2 minutes?: heavy Can you get to places out of walking distance without help? (For eg., can you travel alone on buses, taxis or drive your car?): Yes Can you go shopping for groceries or clothes without someone's help?: Yes Can you prepare your own meals?: Yes Can you do your housework without help?: Yes Because of any health problems, do you need the help of another person with your personal care needs such as eating, bathing, dressing or getting around the house?: No Can you handle your own money without help?: Yes During the past 4 weeks, how would you rate your health in general?: very good During the past 4 weeks how have things been going for you?: very well; could hardly better Are you having difficulties driving your car?: no Do you always fasten your seat belt when you are in a car?: yes, usually During past 4 weeks, have you been bothered by the following: never: Falling or dizzy when standing up, Sexual problems?, Trouble eating well?, Teeth or denture problems?, Problems using the telephone? and Tiredness or fatigue? Have you fallen 2 or more times in the past year?: No Are you afraid of falling?: No Are you a smoker?: no During the past 4 weeks, how many drinks of wine, beer, or other alcoholic beverages did you have?: no alcohol at all Do you exercise for about 20 minutes 3 or more times a week?: yes, some of the time Have you been given information to help with the following?: yes: Hazards in your house that might hurt you? and yes: Keeping track of your medications? How often do you have trouble taking medicines the way you have been told to take them?: I always take medicine as prescribed How confident are you that you can control & manage most of your health problems?: very confident What is your race?: White Mini Mental State Exam (MMSE) Orientation What is the (year) (season) (date) (day) (month)?: year, season, date, day and month Where are we (state) (county) (town or city) (hospital) (floor)?: state, county, town or city, hospital/clinic and floor Registration Name of 3 unrelated objects clearly and slowly, then ask patient to repeat all 3 of them. (1st repeat determines score. Make sure they can repeat all three): object 1, object 2 and object 3 Attention & Calculation (CHOOSE ONE) Spell WORLD backwards (DLROW): 5 letters Recall Ask patient to repeat the 3 items from question #3.: object 1, object 2 and object 3 Language Show patient a wristwatch & ask what it is. Repeat for pencil.: watch and pencil Ask the patient to repeat the phrase 'No ifs, ands, or buts' after you.: correct Ask the patient to 'take a piece of paper with their right hand' 'fold paper in half' 'place paper on floor': take paper in right hand, fold paper in half and place paper on floor Print the sentence 'CLOSE YOUR EYES' on a piece. If patient actually closes eyes then score.: followed written direction Give patient a blank piece of paper & ask to write a sentence. Score if it contains a noun & verb.: sentence contains subject and verb Score Score: 29 Activity of Daily Living Bathing - sponge bath, tub bath or shower: receives no assistance (gets in/out by self, if usual bathing means Dressing - getting clothes from closets & drawers, including inner/outer garments & fasteners.: gets clothes & gets completely dressed without help Toileting - going to the 'toilet room' for urine/bowel elimination & cleaning self/arranging clothes: goes to toilet room, cleans self, arranges clothes without help Transfer: moves in & out of bed and chair without help (may use support object) Continence: controls urination/bowel movements completely by self Feeding: feeds self without help Total Score: 0 Information obtained from: patient Using telephone: independent Traveling: independent Shopping: independent Preparing meals: independent Housework: independent Taking medicine: independent Managing money: independent PHQ-9 Over the last 2 weeks, how often have you been bothered by any of the following problems? 1. Little interest or pleasure in doing things: not at all 2. Feeling down, depressed, or hopeless: not at all 3. Trouble falling or staying asleep, or sleeping too much: not at all 4. Feeling tired or having little energy: not at all 5. Poor appetite or overeating: not at all 6. Feeling bad about yourself - or that you are a failure or have let yourself or your family down: not at all 7. Trouble concentrating on things, such as reading the newspaper or watching television: not at all 8. Moving or speaking so slowly that other people could have noticed. Or the opposite - being so fidgety or restless that you have been moving around a lot more than usual: not at all 9. Thoughts that you would be better off or of hurting yourself in some way: not at all Total score: 0 Depression Screening Interpretation: Negative Depression Screening Done: Yes Source: Developed by Drs. Lyle Ramirez, Francisca Jonas, Nicolas Arias and colleagues, with an educational galen from [employer]. Review of Systems Const All systems reviewed & are unremarkable except as noted in HPI and below Reports no additional complaints Eyes Reports no additional complaints ENT Reports no additional complaints Card Reports no additional complaints Resp Reports no additional complaints GI Reports no additional complaints Reports no additional complaints Physical Exam Vital Signs: Last Vital Signs Pulse 67 06/16/24 08:52 BP 120/72 06/16/24 08:52 Pulse Ox 95 06/16/24 08:52 Oxygen Delivery Method Room Air 06/16/24 08:52 BMI result Body Mass Index 26.9 Const General: no acute distress HEENT Head: Yes normal to inspection Ears: hearing grossly normal bilaterally Neck Neck: Yes no lymphadenopathy and Yes supple Resp Effort & Inspection: normal respiratory effort Auscultation: clear to auscultation bilaterally Cardio Rhythm: regular rhythm Heart sounds: S1 normal heart sound present and S2 normal heart sound present GI Inspection: Yes normal to inspection Palpation (GI): Soft to palpation Percussion: Yes normal to percussion Auscultation: normal bowel sounds Extrem General: Yes no clubbing, cyanosis or edema Assessment & Plan Assessment & Plan (1) Annual physical exam: Code(s): Z00.00 - Encounter for general adult medical examination without abnormal findings Plan: Well-balanced diet regular exercise discussed with the patient she is up-to-date with the mammogram and colonoscopy. Patient was advised to discontinue zolpidem as it may increase her risk for memory difficulties and increase risk for falls (2) Hyperlipidemia: Code(s): E78.5 - Hyperlipidemia, unspecified Plan: Continue statin (3) Osteopenia: Comment: DEXA 05/2019 osteopenia, Prolia inj Code(s): M85.80 - Other specified disorders of bone density and structure, unspecified site Plan: Patient took her last Prolia injection a month ago. DEXA will be checked and in if osteopenia is improved Reclast infusion will be scheduled. Patient will continue vitamin-D and regular exercise Orders: Orders Comprehensive [place]. Panel Fast Today E78.5 - Hyperlipidemia, unspecified, Z00.00 - Encounter for general adult medical examination without abnormal findings Lipid Panel Today E78.5 - Hyperlipidemia, unspecified, Z00.00 - Encounter for general adult medical examination without abnormal findings Vitamin D 25-OH Total Today E78.5 - Hyperlipidemia, unspecified, Z00.00 - Encounter for general adult medical examination without abnormal findings UA w Microscopic Today E78.5 - Hyperlipidemia, unspecified, Z00.00 - Encounter for general adult medical examination without abnormal findings Complete Blood Count Auto Diff Today E78.5 - Hyperlipidemia, unspecified, Z00.00 - Encounter for general adult medical examination without abnormal findings TSH reflex Free T4 Today E78.5 - Hyperlipidemia, unspecified, Z00.00 - Encounter for general adult medical examination without abnormal findings XR DEXA axial skeleton Today Z00.00 - Encounter for general adult medical examination without abnormal findings Medications: Discontinued zolpidem Discontinued Reason: Doctor's Order 5 mg PO BEDTIME PRN 30 tabs 0RF insomnia Quality Reporting (2019) Depression/Bipolar (159/160/161/177) PHQ-9: Total score: 0 Coding Level of Care Code Medicare Subsequent (G0439) Diagnoses Annual physical exam Z00.00 Hyperlipidemia E78.5 Osteopenia M85.80 CPT Codes Advance Care Planning - Time spent: 1-15 minutes, on File ([id number]) Advance Care Planning Advance Care Planning discussion: Completed/Scanned Forms completed: Health Care Proxy Time spent: 1-15 minutes, on File
== END 2024-06-16 09:51 | disposition home or self-care (01) ==
PROVIDERS: PCP Internal Medicine; Visit Provider Internal Medicine
DX: Z00.00 Encounter for general adult medical examination without abnormal findings (principal); E78.5 Hyperlipidemia, unspecified; M85.80 Other specified disorders of bone density and structure, unspecified site
CPT/HCPCS: 1123F; G0439

== ENCOUNTER 2024-06-16 09:44 | Outpatient (REF) | payer MEDICARE, SELFPAY ==
[2024-06-16 13:08] LABS: MANUAL DIFF FLAG NO
[2024-06-16 13:28] LABS: Basophils Percent Auto 0.6 % (0-2); Eosinophils Absolute Auto 0.1 X10*3/uL (0.0-0.4); Eosinophils Percent Auto 2.2 % (0-4); Hematocrit 41.8 % (37.0-47.0); Hemoglobin 14.1 g/dl (12.0-16.0); Imm Gran Abs Auto 0.02 X10*3/uL (0.00-0.03); Imm Gran Pct Auto 0.4 % (0.0-0.4); Lymphocytes Absolute Auto 1.7 X10*3/uL (1.2-4.9); Lymphocytes Percent Auto 35.5 % (20-40); Mean Corpuscular HGB Conc 33.7 g/dl (31.0-35.0); Mean Corpuscular Hemoglobin 29.6 pg (27.0-33.0); Mean Corpuscular Volume 87.6 fL (80.0-98.0); Mean Platelet Volume 9.4 fL (9.4-12.3); Monocytes Absolute Auto 0.4 X10*3/uL (0.1-1.2); Monocytes Percent Auto 8.2 % (2-11); Neutrophils Absolute Auto 2.5 x10*3/uL (2.0-8.3); Neutrophils Percent Auto 53.1 % (45-73); Platelet Count 263 X10*3/uL (160-400); Red Blood Count 4.77 X10*6/uL (4.20-5.50); Red Cell Distribution Width 12.1 % (11.0-16.0); White Blood Count 4.7 X10*3/uL (4.8-10.8)
[2024-06-16 13:39] LABS: Appearance Urine Clear; Color Urine Yellow; Glucose Urine UA Negative (Negative); Leukocyte Esterase Urine Negative (Negative); Nitrite Urine Negative (Negative); Urine Blood Negative (Negative); Urine Ketones Negative (Negative); Urine Protein Negative (Neg-Trace)
[2024-06-16 13:46] LABS: Bacteria Urine None Seen (None Seen); Hyaline Casts Urine 0-2 /LPF (0-2); RBC Urine 0-2 /HPF (0-2); Squamous Epithelial Cell Urine 0-2 /HPF (0-2); WBC Urine 0-5 /HPF (0-5)
[2024-06-16 13:47] LABS: Alanine Aminotransferase 27 U/L (0-31); Albumin Level 4.6 g/dL (3.5-5.0); Alkaline Phosphatase 45 U/L (39-117); Anion Gap 14 (12-20); Aspartate Amino Transferase 26 U/L (5-31); Bilirubin Total 0.5 mg/dL (0.0-1.0); Blood Urea Nitrogen 14 mg/dL (9-16); Calcium 9.3 mg/dL (8.4-10.2); Carbon Dioxide 27 mmol/L (22-29); Chloride 105 mmol/L (96-108); Cholesterol 229 mg/dL (<200); Estimated Glomerular Filt Rate > 60; Glucose Fasting 94 mg/dL (60-99); HDL Cholesterol 73 mg/dL (>40); LDL Cholesterol Calculated 138 mg/dL (<100); Potassium 4.5 mmol/L (3.3-5.1); Sodium 141 mmol/L (135-145); Total Protein 7.3 g/dL (6.5-8.0); Triglycerides 94 mg/dL (<150)
[2024-06-16 13:48] LABS: TSH reflex Free T4 0.91 uIU/mL (0.32-4.0); Vitamin D 25-OH Total 67.5 ng/mL (>30)
== END 2024-06-16 09:45 | disposition home or self-care (01) ==
LOC: HO.HMGCLDS 09:44
PROVIDERS: PCP Internal Medicine; Visit Provider Internal Medicine
DX: Z00.00 Encounter for general adult medical examination without abnormal findings (principal); M85.80 Other specified disorders of bone density and structure, unspecified site; E78.5 Hyperlipidemia, unspecified
CPT/HCPCS: 36415; 80053; 80061; 81001; 82306; 84443; 85025

== ENCOUNTER 2024-10-14 09:04 | Outpatient (AMB) | payer MEDICARE, SELFPAY ==
[2024-10-14 09:05] VITALS: BP 130/70; PULSE 74; O2SAT 98; BMI 26.7
--- NOTE | 2024-10-14 09:05 | MHC.PC.OV ---
Vital Signs 10/14/24 09:05 Height 5 ft 2 in Weight 146 lb BMI 26.7 BP 130/70 Blood Pressure Location Lt brachial Position Sitting Pulse 74 Pulse Source Pulse Oximeter Pulse Oximetry (%) 98 Oxygen Delivery Method Room Air Intake Visit Reasons: tingling in hands x 1 month Intake Note: Pt is here today for a sick visit. Pt c/o tingiling sensation in both hands and fingers for about a month now. Allergies No Known Allergies Allergy (Verified 10/14/24 09:14) Medication List - Last Reconciled 10/14/24 by Lala Jama MD acyclovir 5% 1 appl topical 6XD aspirin 81 mg PO DAILY atorvastatin 20 mg PO DAILY denosumab 60 mg subcut [id number] fluoxetine 10 mg PO DAILY meclizine (Medi-Meclizine) 25 mg PO TID methenamine hippurate 1 g PO BID pantoprazole 20 mg PO DAILY Tobacco use date assessed: 10/14/24 Fall risk assessment: No Falls in past year Last assessed Fall Risk: 10/14/24 Dental Screening Dental Screen Date: 10/14/24 Did you have a dental visit in the last 12 months?: Yes Did you have a dental problem in the last 6 months where you did not have access to dental care?: No Was dental information given to patient?: Patient has dentist HPI tingling in hands x 1 month HPI Details Patient presents complaining of tingling sensation in both thumbs and index fingers on and off for the last month. Patient has been working in her garden and knitting scarfs for few hours a day. 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 Hyperlipidemia is controlled on atorvastatin [facility] Medical History Lip lesion Vertigo Annual physical exam Screen for colon cancer Cervical radiculopathy (~08/20/21) Neck pain Sciatica Nephrolithiasis Osteopenia Anxiety and depression Hyperlipidemia Surgical History History of oophorectomy, unilateral History of back surgery History of section H/O colonoscopy Family History Father Heart attack Mother Cancer Brother No problems noted. Son No problems noted. Daughter No problems noted. Social History Housing: House Alcohol intake: never Patient Tobacco Use Status: Never used Tobacco e-Cigarette/Vaping Use: Never Used service: No Current occupational status: retired Cognitive needs: No Hearing needs: No Vision needs: Yes Questionnaire PHQ-9 Over the last 2 weeks, how often have you been bothered by any of the following problems? 1. Little interest or pleasure in doing things: not at all 2. Feeling down, depressed, or hopeless: not at all 3. Trouble falling or staying asleep, or sleeping too much: not at all 4. Feeling tired or having little energy: not at all 5. Poor appetite or overeating: not at all 6. Feeling bad about yourself - or that you are a failure or have let yourself or your family down: not at all 7. Trouble concentrating on things, such as reading the newspaper or watching television: not at all 8. Moving or speaking so slowly that other people could have noticed. Or the opposite - being so fidgety or restless that you have been moving around a lot more than usual: not at all 9. Thoughts that you would be better off or of hurting yourself in some way: not at all Total score: 0 Depression Screening Interpretation: Negative Depression Screening Done: Yes 66054 - PHQ-9 Billing: Yes Source: Developed by Drs. Lyle Ramirez, Francisca Jonas, Nicolas Arias and colleagues, with an educational galen from [employer]. Thrive Questionnaire Date Thrive assessed: 10/14/24 I am a: Patient What is your living situation today?: I have a steady place to live Within the past 12 months, did the food you bought not last and you didn't have the money to get more?: Never true Within the past 12 months, did you worry whether your food would run out before you got money to buy more?: Never true Do you have trouble paying for medicines?: No Do you have trouble getting transportation to medical appointments?: No Do you have trouble paying your heating and electricity bill?: No Do you have trouble taking care of your child, family member or friend?: No Do you have trouble with day-to-day activities such as bathing, preparing meals, shopping, managing finances, etc.?: No Are you currently unemployed and looking for a job?: No Are you interested in more education?: No Please select the resources that you would like help with: None Currently or been in a relationship where the following occur: No concerns reported THRIVE Score: 0 AUDIT C Alcohol Use Questionnaire (AUDIT-C) 1. How often do you have a drink containing alcohol?: Never 3. How often do you have six or more drinks on one occasion?: Never Total Score: 0 MICHEL-7 AMB Questionnaire MICHEL-7 Date MICHEL - 7 assessed: 10/14/24 Feeling nervous, anxious, or on edge: 0 = Not at all Not being able to stop or control worryin = Not at all Worrying too much about different things: 0 = Not at all Trouble relaxin = Not at all Being so restless that it is hard to sit still: 0 = Not at all Becoming easily annoyed or irritable: 0 = Not at all Feeling afraid as if something awful might happen: 0 = Not at all Total MICHEL-7 score (0-4 normal; 5-9 mild; 10-14 moderate; 15-21 severe): 0 Source: Developed by Drs. Lyle Ramirez, Francisca Jonas, Nicolas Arias and colleagues, with an educational galen from [employer]. Review of Systems Const All systems reviewed & are unremarkable except as noted in HPI and below Card Reports no additional complaints Resp Reports no additional complaints GI Reports no additional complaints Reports no additional complaints Physical exam (Primary Care) Vital Signs: Last Vital Signs Pulse 74 10/14/24 09:05 BP 130/70 10/14/24 09:05 Pulse Ox 98 10/14/24 09:05 Oxygen Delivery Method Room Air 10/14/24 09:05 BMI result Body Mass Index 26.7 Tobacco/Smoking Status: Tobacco use Status Tobacco use date assessed 10/14/24 10/14/24 09:19 Patient Tobacco Use Status Never used Tobacco 10/14/24 09:19 e-Cigarette/Vaping Use Never Used 10/14/24 09:19 PHQ-9: PHQ-9 Score PHQ-9: Total score 0 10/14/24 09:19 Depression Screening Interpretation: Negative Thrive Assessment: Date of Thrive Assessment Date Thrive assessed 10/14/24 10/14/24 09:19 Currently or been in a relationship where the following occur: No concerns reported Const General: no acute distress Resp Effort & Inspection: normal respiratory effort Auscultation: clear to auscultation bilaterally Cardio Rhythm: regular rhythm Heart sounds: S1 normal heart sound present and S2 normal heart sound present Extrem Right upper extremity: wrist Details: normal to inspection, normal vascular exam, Tinel's negative and Phalen's negative Left upper extremity: wrist Coding Level of Care Code Est Pt Level 3 (05996) Diagnoses Osteopenia M85.80 Hyperlipidemia E78.5 Carpal tunnel syndrome on both sides G56.03 Additional Codes PHQ-9 - 12308 - PHQ-9 Billing: Yes ([id number]) Assessment & Plan Assessment & Plan (1) Osteopenia: Comment: DEXA 05/2019 osteopenia, Prolia inj since 2022 Code(s): M85.80 - Other specified disorders of bone density and structure, unspecified site Category: Medical Plan: check DEXA in 07/17 (2) Hyperlipidemia: Code(s): E78.5 - Hyperlipidemia, unspecified Category: Medical Plan: Continue statin (3) Carpal tunnel syndrome on both sides: Code(s): G56.03 - Carpal tunnel syndrome, bilateral upper limbs Category: Medical Plan: Check EMG to evaluate, patient was advised to wear wrist splints at night Orders: Orders [place] electromyogram (EMG) Today G56.03 - Carpal tunnel syndrome, bilateral upper limbs Complete Blood Count Auto Diff 8 Months E78.5 - Hyperlipidemia, unspecified, Z00.00 - Encounter for general adult medical examination without abnormal findings Vitamin D 25-OH Total 8 Months E78.5 - Hyperlipidemia, unspecified, Z00.00 - Encounter for general adult medical examination without abnormal findings UA CC w/rflx Micro + Cult 8 Months E78.5 - Hyperlipidemia, unspecified, Z00.00 - Encounter for general adult medical examination without abnormal findings Comprehensive [place]. Panel Fast 8 Months E78.5 - Hyperlipidemia, unspecified, Z00.00 - Encounter for general adult medical examination without abnormal findings Lipid Panel 8 Months E78.5 - Hyperlipidemia, unspecified, Z00.00 - Encounter for general adult medical examination without abnormal findings TSH reflex Free T4 8 Months E78.5 - Hyperlipidemia, unspecified, Z00.00 - Encounter for general adult medical examination without abnormal findings Medications: Refilled denosumab 60 mg subcut [id number] 1 mL 1RF
== END 2024-10-14 10:49 | disposition home or self-care (01) ==
PROVIDERS: PCP Internal Medicine; Visit Provider Internal Medicine
DX: M85.80 Other specified disorders of bone density and structure, unspecified site (principal); E78.5 Hyperlipidemia, unspecified; G56.03 Carpal tunnel syndrome, bilateral upper limbs

== ENCOUNTER → 2024-10-14 09:04 | Outpatient (BNVA) | payer MEDICARE, SELFPAY | PROVIDERS: PCP Internal Medicine; Visit Provider Internal Medicine | DX: M85.80 Other specified disorders of bone density and structure, unspecified site (principal); E78.5 Hyperlipidemia, unspecified; G56.03 Carpal tunnel syndrome, bilateral upper limbs | CPT/HCPCS: 96127; 99212 ==

== ENCOUNTER 2024-11-01 06:07 | Outpatient (REF) | payer MEDICARE, SELFPAY ==
--- NOTE | 2024-11-01 | EMG_ITS ---
Bilateral median and ulnar motor and sensory studies were performed. Bilateral radial sensory studies were performed and paraspinal muscles were tested with a needle. 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 MD RUPERT Foster/[facility] / [id number]
== END 2024-11-01 06:08 | disposition home or self-care (01) ==
LOC: HO.NEURO 06:07
PROVIDERS: PCP Internal Medicine; Visit Provider Internal Medicine
DX: G56.03 Carpal tunnel syndrome, bilateral upper limbs (principal)
CPT/HCPCS: 95886; 95911

== ENCOUNTER 2024-11-22 13:46 | Outpatient (REF) | payer MEDICARE, SELFPAY ==
--- NOTE | ~2024-11-22 | MR_ITS ---
CLINICAL HISTORY: M54.12 - Radiculopathy, cervical region MR of the cervical spine without contrast. COMPARISON: MR cervical spine dated 02/11/21 at 09:36 EDT FINDINGS: Normal alignment of the anterior and posterior elements without evidence of subluxation. Vertebral heights are maintained. Bone island present within the T2 vertebral body, unchanged. Anterior cervical fusion hardware present at C5-6 with artifact mildly limiting evaluation of the vertebral bodies at this level. Visualized posterior fossa is normal. No abnormal signal within the normal caliber cervical spinal cord. No syringomyelia or cervical epidural fluid collection. C2-C3: No significant neuroforaminal narrowing or spinal canal stenosis. C3-C4: Facet joint arthrosis. Moderate bilateral neural foraminal narrowing. C4-C5: Facet joint arthrosis, [id number]-[id number]-left. Moderate right and mild left neural foraminal narrowing. C5-C6: Uncovertebral joint hypertrophy. Severe left neural foraminal narrowing. C6-C7: Posterior disc osteophyte complex indents the anterior subarachnoid space and does not abut the cord. No significant neural foraminal narrowing. Mild spinal canal stenosis at this level. Visualized paraspinal soft tissues are unremarkable. IMPRESSION: 1. No evidence of acute injury to the cervical spine. 2. Anatomic alignment of anteriorly fused C5-6 levels. 3. Mild spinal canal stenosis at C6-7. 4. Multilevel neural foraminal narrowing most pronounced at C5-6 on the left. This document has been electronically signed by: Alphonso Ayon MD on 11/22/2024 15:19:07
== END 2024-11-22 13:47 | disposition home or self-care (01) ==
LOC: HO.MRI 13:46
PROVIDERS: Visit Provider Internal Medicine
DX: M54.12 Radiculopathy, cervical region (principal)
CPT/HCPCS: 72141

== ENCOUNTER → 2024-11-22 13:51 | Outpatient (BNV) | payer MEDICARE, SELFPAY | PROVIDERS: Visit Provider Radiology Diagnostic Radiology | DX: M54.12 Radiculopathy, cervical region (principal) | CPT/HCPCS: 72141 ==

== ENCOUNTER 2025-02-10 09:18 | Outpatient (AMB) | payer MEDICARE, SELFPAY ==
[2025-02-10 09:19] VITALS: BP 130/70; PULSE 72; TEMP 36.7; O2SAT 98; BMI 26.9
--- NOTE | 2025-02-10 09:19 | A.OFFPC_ITS ---
Vital Signs 02/10/25 09:19 Height 5 ft 2 in Weight 147 lb BMI 26.9 BP 130/70 Blood Pressure Location Lt brachial Position Sitting Pulse 72 Pulse Source Pulse Oximeter Temp 98.0 F Temp Source Oral Pulse Oximetry (%) 98 Oxygen Delivery Method Room Air Intake Visit Reasons: heart problem Intake Note: Pt is here today for a follow up visit. Allergies No Known Allergies Allergy (Verified 02/10/25 09:28) Medication List - Last Reconciled 02/10/25 by aLla Jama MD acyclovir 5% 1 appl topical 6XD aspirin 81 mg PO DAILY atorvastatin 20 mg PO DAILY denosumab 60 mg subcut [id number] fluoxetine 10 mg PO DAILY fluoxetine 20 mg PO DAILY meclizine (Medi-Meclizine) 25 mg PO TID methenamine hippurate 1 g PO BID pantoprazole 20 mg PO DAILY Tobacco use date assessed: 02/10/25 Fall risk assessment: No Falls in past year Last assessed Fall Risk: 02/10/25 Dental Screening Dental Screen Date: 02/10/25 Did you have a dental visit in the last 12 months?: Yes Did you have a dental problem in the last 6 months where you did not have access to dental care?: No Was dental information given to patient?: Patient has dentist HPI heart problem HPI Details Patient presents complaining of feeling anxious stressed out about the family visiting from [place] while she was in [place]. Patient was feeling lightheaded when walking outside in the hot weather. She is feeling better with the cooler weather and has been physically active at home. She denies exercise induced chest pain shortness or breath palpitations PND or orthopnea. Patient reports intermittent insomnia but denies depression or change in appetite [facility] Medical History Lip lesion Vertigo Annual physical exam Screen for colon cancer Cervical radiculopathy (~08/20/21) Neck pain Sciatica Nephrolithiasis Osteopenia Anxiety and depression Hyperlipidemia Surgical History History of oophorectomy, unilateral History of back surgery History of section H/O colonoscopy Family History Father Heart attack Mother Cancer Brother No problems noted. Son No problems noted. Daughter No problems noted. Social History Housing: House Alcohol intake: never Patient Tobacco Use Status: Never used Tobacco e-Cigarette/Vaping Use: Never Used service: No Current occupational status: retired Cognitive needs: No Hearing needs: No Vision needs: Yes Questionnaire PHQ-9 Over the last 2 weeks, how often have you been bothered by any of the following problems? 1. Little interest or pleasure in doing things: not at all 2. Feeling down, depressed, or hopeless: not at all 3. Trouble falling or staying asleep, or sleeping too much: not at all 4. Feeling tired or having little energy: not at all 5. Poor appetite or overeating: not at all 6. Feeling bad about yourself - or that you are a failure or have let yourself or your family down: not at all 7. Trouble concentrating on things, such as reading the newspaper or watching television: not at all 8. Moving or speaking so slowly that other people could have noticed. Or the opposite - being so fidgety or restless that you have been moving around a lot more than usual: not at all 9. Thoughts that you would be better off or of hurting yourself in some way: not at all Total score: 0 Depression Screening Interpretation: Negative Depression Screening Done: Yes 85478 - PHQ-9 Billing: Yes Source: Developed by Drs. Lyle Ramirez, Francisca Jonas, Nicolas Arias and colleagues, with an educational galen from [employer]. Thrive Questionnaire Date Thrive assessed: 10/14/24 I am a: Patient What is your living situation today?: I have a steady place to live Within the past 12 months, did the food you bought not last and you didn't have the money to get more?: Never true Within the past 12 months, did you worry whether your food would run out before you got money to buy more?: Never true Do you have trouble paying for medicines?: No Do you have trouble getting transportation to medical appointments?: No Do you have trouble paying your heating and electricity bill?: No Do you have trouble taking care of your child, family member or friend?: No Do you have trouble with day-to-day activities such as bathing, preparing meals, shopping, managing finances, etc.?: No Are you currently unemployed and looking for a job?: No Are you interested in more education?: No Please select the resources that you would like help with: None Currently or been in a relationship where the following occur: No concerns reported THRIVE Score: 0 AUDIT C Alcohol Use Questionnaire (AUDIT-C) 1. How often do you have a drink containing alcohol?: Never Total Score: 0 MICHEL-7 AMB Questionnaire MICHEL-7 Date MICHEL - 7 assessed: 02/10/25 Feeling nervous, anxious, or on edge: 0 = Not at all Not being able to stop or control worryin = Not at all Worrying too much about different things: 0 = Not at all Trouble relaxin = Not at all Being so restless that it is hard to sit still: 0 = Not at all Becoming easily annoyed or irritable: 0 = Not at all Feeling afraid as if something awful might happen: 0 = Not at all Total MICHEL-7 score (0-4 normal; 5-9 mild; 10-14 moderate; 15-21 severe): 0 Source: Developed by Drs. Lyle Ramirez, Francisca Jonas, Nicolas Arias and colleagues, with an educational galen from [employer]. MICHEL-7 Assessment Billing MICHEL-7 Assessment Tool: MICHEL-7 Assessment 51856 Review of Systems Const All systems reviewed & are unremarkable except as noted in HPI and below Eyes Reports no additional complaints ENT Reports no additional complaints Card Reports no additional complaints Resp Reports no additional complaints GI Reports no additional complaints Reports no additional complaints Physical exam (Primary Care) Vital Signs: Last Vital Signs Temp 98.0 F 02/10/25 09:19 Pulse 72 02/10/25 09:19 BP 130/70 02/10/25 09:19 Pulse Ox 98 02/10/25 09:19 Oxygen Delivery Method Room Air 02/10/25 09:19 BMI result Body Mass Index 26.9 Tobacco/Smoking Status: Tobacco use Status Tobacco use date assessed 02/10/25 02/10/25 09:29 Patient Tobacco Use Status Never used Tobacco 02/10/25 09:21 e-Cigarette/Vaping Use Never Used 02/10/25 09:21 PHQ-9: PHQ-9 Score PHQ-9: Total score 0 02/10/25 09:37 Depression Screening Interpretation: Negative Thrive Assessment: Date of Thrive Assessment Date Thrive assessed 10/14/24 02/10/25 09:21 Currently or been in a relationship where the following occur: No concerns reported Const General: no acute distress HENMT Head: Yes normal to inspection Throat: Yes posterior oropharynx normal Eyes General: appearance normal, both eyes and all related structures Neck Neck: Yes supple Resp Effort & Inspection: normal respiratory effort Auscultation: clear to auscultation bilaterally Cardio Rhythm: regular rhythm Heart sounds: S1 normal heart sound present and S2 normal heart sound present Coding Level of Care Code Est Pt Level 3 (59537) Diagnoses Anxiety and depression F41.9; F32.9 Hyperlipidemia E78.5 Additional Codes MICHEL-7 Assessment Billing - MICHEL-7 Assessment Tool: MICHEL-7 Assessment 91818 ( [id number]) PHQ-9 - 94801 - PHQ-9 Billing: Yes ([id number]) Assessment & Plan Assessment & Plan (1) Anxiety and depression: Code(s): F41.9 - Anxiety disorder, unspecified; F32.9 - Major depressive disorder, single episode, unspecified Category: Medical Plan: Increase fluoxetine to 20 mg a day stress management regular physical activity and yoga discussed with the patient. Follow-up in 1 month (2) Hyperlipidemia: Code(s): E78.5 - Hyperlipidemia, unspecified Category: Medical Plan: Continue statin Orders: Orders Complete Blood Count Auto Diff Today D23.9 - Other benign neoplasm of skin, unspecified Comprehensive [place]. Panel Fast Today D23.9 - Other benign neoplasm of skin, unspecified Referrals Dermatology Referral D23.9 - Other benign neoplasm of skin, unspecified Medications: New fluoxetine 20 mg PO DAILY 90 tabs 1RF Discontinued fluoxetine Discontinued Reason: Doctor's Order 10 mg PO DAILY 90 caps 3RF
== END 2025-02-10 10:31 | disposition home or self-care (01) ==
LOC: HO.HMCC 09:19
PROVIDERS: Visit Provider Internal Medicine
DX: F41.9 Anxiety disorder, unspecified (principal); F32.9 Major depressive disorder, single episode, unspecified; E78.5 Hyperlipidemia, unspecified

== ENCOUNTER → 2025-02-10 09:18 | Outpatient (BNVA) | payer MEDICARE, SELFPAY | PROVIDERS: Visit Provider Internal Medicine | DX: F41.9 Anxiety disorder, unspecified (principal); F32.9 Major depressive disorder, single episode, unspecified; E78.5 Hyperlipidemia, unspecified | CPT/HCPCS: 96127; 99212 ==

== ENCOUNTER 2025-03-23 08:50 | Outpatient (AMB) | payer MEDICARE, SELFPAY ==
--- NOTE | 2025-03-23 08:55 | MHC.PC.OV ---
Vital Signs 03/23/25 08:56 Height 5 ft 2 in Weight 147 lb BMI 26.9 BP 108/72 Blood Pressure Location Lt brachial Position Sitting Respiration 18 Pulse 74 Pulse Source Pulse Oximeter Temp 98.7 F Temp Source Oral Pulse Oximetry (%) 98 Oxygen Delivery Method Room Air Intake Visit Reasons: 1 months f/up Intake Note: Pt is here today for 1 month follow up visit. Allergies No Known Allergies Allergy (Verified 03/23/25 08:57) Medication List - Last Reconciled 03/23/25 by Lala Jama MD acyclovir 5% 1 appl topical 6XD aspirin 81 mg PO DAILY atorvastatin 20 mg PO DAILY denosumab 60 mg subcut [id number] fluoxetine 20 mg PO DAILY meclizine (Medi-Meclizine) 25 mg PO TID methenamine hippurate 1 g PO BID pantoprazole 20 mg PO DAILY Tobacco use date assessed: 03/23/25 Fall risk assessment: No Falls in past year Last assessed Fall Risk: 03/23/25 Dental Screening Dental Screen Date: 02/10/25 HPI 1 months f/up HPI Details Pt presents for f/u anxiety and hyperlipid, stable on meds. [facility] Medical History (Updated 03/23/25 @ 11:00 by Lala Jama MD) Carpal tunnel syndrome on both sides Lip lesion Vertigo Annual physical exam Screen for colon cancer Cervical radiculopathy (~08/20/21) Neck pain Sciatica Nephrolithiasis Osteopenia Anxiety and depression Hyperlipidemia Surgical History History of oophorectomy, unilateral History of back surgery History of section H/O colonoscopy Family History Father Heart attack Mother Cancer Brother No problems noted. Son No problems noted. Daughter No problems noted. Social History Housing: House Alcohol intake: never Patient Tobacco Use Status: Never used Tobacco e-Cigarette/Vaping Use: Never Used service: No Current occupational status: retired Cognitive needs: No Hearing needs: No Vision needs: Yes Questionnaire Thrive Questionnaire Date Thrive assessed: 02/10/25 I am a: Patient What is your living situation today?: I have a steady place to live Within the past 12 months, did the food you bought not last and you didn't have the money to get more?: Never true Within the past 12 months, did you worry whether your food would run out before you got money to buy more?: Never true Do you have trouble paying for medicines?: No Do you have trouble getting transportation to medical appointments?: No Do you have trouble paying your heating and electricity bill?: No Do you have trouble taking care of your child, family member or friend?: No Do you have trouble with day-to-day activities such as bathing, preparing meals, shopping, managing finances, etc.?: No Are you currently unemployed and looking for a job?: No Are you interested in more education?: No Please select the resources that you would like help with: None Currently or been in a relationship where the following occur: No concerns reported THRIVE Score: 0 MICHEL-7 AMB Questionnaire MICHEL-7 Date MICHEL - 7 assessed: 02/10/25 Source: Developed by Drs. Lyle Ramirez, Francisca Jonas, Nicolas Arias and colleagues, with an educational galen from [employer]. Review of Systems Const All systems reviewed & are unremarkable except as noted in HPI and below Reports no additional complaints Eyes Reports no additional complaints ENT Reports no additional complaints Card Reports no additional complaints Resp Reports no additional complaints GI Reports no additional complaints Reports no additional complaints Physical exam (Primary Care) Vital Signs: Last Vital Signs Temp 98.7 F 03/23/25 08:56 Pulse 74 03/23/25 08:56 Resp 18 03/23/25 08:56 BP 108/72 03/23/25 08:56 Pulse Ox 98 03/23/25 08:56 Oxygen Delivery Method Room Air 03/23/25 08:56 BMI result Body Mass Index 26.9 Tobacco/Smoking Status: Tobacco use Status Tobacco use date assessed 03/23/25 03/23/25 08:57 Patient Tobacco Use Status Never used Tobacco 03/23/25 08:57 e-Cigarette/Vaping Use Never Used 03/23/25 08:56 Thrive Assessment: Date of Thrive Assessment Date Thrive assessed 02/10/25 03/23/25 08:56 Currently or been in a relationship where the following occur: No concerns reported Const General: no acute distress HENMT Head: Yes normal to inspection Ears: hearing grossly normal bilaterally Mouth: Normal oral and palatal mucosa present Throat: Yes posterior oropharynx normal Neck Neck: Yes no lymphadenopathy and Yes supple Resp Effort & Inspection: normal respiratory effort Auscultation: clear to auscultation bilaterally Cardio Rhythm: regular rhythm Heart sounds: S1 normal heart sound present and S2 normal heart sound present GI Inspection: Yes normal to inspection Palpation (GI): Soft to palpation Percussion: Yes normal to percussion Auscultation: normal bowel sounds Coding Level of Care Code Est Pt Level 4 (67933) Diagnoses Hyperlipidemia E78.5 Anxiety and depression F41.9; F32.9 Osteopenia M85.80 Assessment & Plan Assessment & Plan (1) Hyperlipidemia: Code(s): E78.5 - Hyperlipidemia, unspecified Category: Medical Plan: Continue statin (2) Anxiety and depression: Code(s): F41.9 - Anxiety disorder, unspecified; F32.9 - Major depressive disorder, single episode, unspecified Category: Medical Plan: Continue fluoxetine (3) Osteopenia: Comment: DEXA 05/2019 osteopenia, Prolia inj since 2022 by Endo Code(s): M85.80 - Other specified disorders of bone density and structure, unspecified site Category: Medical Plan: Follow-up with endocrinology Orders: Orders Lipid Panel Today E78.5 - Hyperlipidemia, unspecified, F32.9 - Major depressive disorder, single episode, unspecified, F41.9 - Anxiety disorder, unspecified Vitamin D 25-OH Total Today E78.5 - Hyperlipidemia, unspecified, F32.9 - Major depressive disorder, single episode, unspecified, F41.9 - Anxiety disorder, unspecified Comprehensive [place]. Panel Fast Today E78.5 - Hyperlipidemia, unspecified, F32.9 - Major depressive disorder, single episode, unspecified, F41.9 - Anxiety disorder, unspecified Complete Blood Count Auto Diff Today E78.5 - Hyperlipidemia, unspecified, F32.9 - Major depressive disorder, single episode, unspecified, F41.9 - Anxiety disorder, unspecified TSH reflex Free T4 Today E78.5 - Hyperlipidemia, unspecified, F32.9 - Major depressive disorder, single episode, unspecified, F41.9 - Anxiety disorder, unspecified
[2025-03-23 08:56] VITALS: BP 108/72; PULSE 74; RESP 18; TEMP 37.1; O2SAT 98; BMI 26.9
--- OUTSIDE RECORDS SUMMARY | 2025-03-23 09:15 | XMS_ITS | Clinical Summary ---
Author Organization [address] [facility] Address [address] [place] [address] Phone Care Team Providers Care Track Laborer Name Role Phone Lala Jama MD Primary Care Provider [phone] Allergies No known active allergies Medications pantoprazole (PROTONIX) 20 mg EC tablet TAKE ONE TABLET BY MOUTH EVERY MORNING ON AN EMPTY STOMACH, WAIT 30 MINUTES AND THEN EAT TO ACTIVATE MEDICATION 30 tablet 2 5 Active atorvastatin (LIPITOR) 20 mg tablet Take 1 tablet (20 mg total) by mouth. 1 Active FLUoxetine (PROzac) 10 mg capsule Take 1 capsule (10 mg total) by mouth. 1 Active methenamine hippurate (HIPREX) 1 gram tablet Take 1 tablet (1 g total) by mouth. 1 Active Encounters Date Type Department Care Team Description 03/22/2025 9:00 AM EDT Consult [facility] [place] [address] [place] [id number] Vladislav Mixon PA Epidermal inclusion cyst (Primary Dx); Pilar cyst of scalp from Last 3 Months Medical History Medical History Date Comments Functional dyspepsia DX:Function al dyspepsia Esophageal reflux DX:Esophageal reflux Abdominal pain DX:Abdominal sonal n Left upper quadrant pain DX:Left upper quadrant pain Straining with stools DX:Straini ng with stools Social History Tobacco Use Types Packs/Day Years Used Date Smoking Tobacco: Never Tobacco Cessation:Counseling Given: Not Answered Alcohol Use Standard Drinks/Week Comments Never 0 (1 standard drink = 0.6 oz pur e alcohol) Comments Unknown Sex and Gender Information Value Date Recorded Sex Assigned at Not on file Legal Sex Female 1:31 PM EST Gender Identity Not on file Sexual Orientation Not on file Obstetrics History Last Filed Vital Signs Vital Sign Reading Time Taken Comments Blood Pressure 141/86 03/22/2025 8:38 AM EDT Pulse 84 03/22/2025 8:38 AM EDT Temperature - - Respiratory Rate - - Oxygen Saturation - - Inhaled Oxygen Concentration - - Weight 66.8 kg (147 lb 3.2 oz) 03/22/2025 8:38 A M EDT Height 156.2 cm (5' 1.5 ) 03/22/2025 8:38 AM EDT Body Mass Index 27.36 03/22/2025 8:38 AM EDT Plan of Treatment Health Maintenance Due Date Last Done Comments Breast Cancer Screening 1950 DTaP,Tdap,and Td Vaccines (1 - Tdap) 1969 Pneumococcal Vaccine: 50+ Years (1 of 1 - PCV) 2000 Zoster Vaccines (1 of 2) 2000 Colorectal Cancer Screening: Colonoscopy 11/02/2022 Depression Screening 11/02/2022 Falls Risk Assessment 11/02/2022 Hepatitis C Screening 11/02/2022 Medicare Annual Wellness Visit 11/02/2022 Osteoporosis Screening (Bone Density Screening) 11/02/2022 Social Influencers of Health Screening 11/02/2022 COVID-19 Vaccine ( - 2023-2 5 season) 2024 RSV Immunization Adult Patients (1 - 1-dose 75+ series) 2025 Influenza Vaccine (Season Ended) 2025 09/21/2019, 07/29/2018 HIB Vaccines Aged Out No longer eligi ble based on patient's age to complete this topic HPV Vaccines Aged Out No longer eligi ble based on patient's age to complete this topic Hepatitis A Vaccines Aged Out No long er eligible based on patient's age to complete this topic Hepatitis B Vaccines Aged Out No long er eligible based on patient's age to complete this topic IPV Vaccines Aged Out No longer eligi ble based on patient's age to complete this topic MMR Vaccines Aged Out No longer eligi ble based on patient's age to complete this topic Meningococcal ACWY Vaccine Aged Out N o longer eligible based on patient's age to complete this topic Meningococcal B Vaccine Aged Out No l onger eligible based on patient's age to complete this topic RSV Immunization Patients Under 20 months Aged Out No longer eligible b ased on patient's age to complete this topic Varicella Vaccines Aged Out No longer eligible based on patient's age to complete this topic Insurance [facility] MEDICARE Care Teams Track Laborer Relationship Specialty Start Date End Date Lala Jama MD [address] [place] [id number] PCP - General Internal Medicine 03/21/25
--- OUTSIDE RECORDS SUMMARY | 2025-03-23 09:15 | XMS_ITS | Encounter Summary ---
Author Organization 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 Encounter Details Date Type Department Care Team (Late st Contact Info) Description 03/22/2025 9:00 AM EDT Consult Plastic & Reconstructive Surgery - [place] [address] [place] [address] Vladislav Mixon PA [address] [place] [address] Epidermal inclusion cyst (Primary Dx); Pilar cyst of scalp Social History Tobacco Use Types Packs/Day Years [...] on file Sexual Orientation Not on file documented as of this encounter Last Filed Vital Signs Vital Sign Reading [...] Mass Index 27.36 03/22/2025 8:38 AM EDT documented in this encounter Progress Notes * KATT Castillo - 03/22/2025 9:00 AM EDT [facility] Information about your office procedure: You will be having a lesion removed by Dr. Bueno, a Board Certified Plastic and Reconstructive Surgeon. We will call you to schedule this procedure LOCATION: [facility]LAST[facility]ERY OFFICE [address] [address] [address] at the office that your consultation was located in. The procedure will take approximately 1 hour. This procedure will be done while you are awake. You will receive local anesthetic in the area of the lesion. You will receive this numbing medication in the form of an injection. You will not receive any medication that would make you drowsy or alter your mental state. You willbe safe to drive yourself to and from the procedure. It is recommended to eat breakfast/lunch prior to the procedure. If you take aspirin, stop taking it 5 days prior to your procedure date. If you take any other type of blood thinners, hold your medication as instructed by our office. You may take all of your other daily medications on the day of the procedure. After the procedure, you may have some redness, swelling, and possibly some bruising surrounding the incision site. You may also have some bleeding from the incision sites. This is normal and expected. Treat this bleeding as if you would any cut. Apply mild pressure and a dressing to absorb the bleeding. Call the office if you have excessive bleeding that is not relieved by pressure. You may take Tylenol/Ibuprofen for any post-operative pain you may have, unless instructed otherwise by a health care provider. Follow up in our office about 1 week after your procedure as scheduled. Call our office with any questions or concerns you may have. [phone] * KATT Castillo - 03/22/2025 9:00 AM EDT Images from the original note were not included. 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 female presenting with a 2 year history of a painful mass in right scalp x 2, as well as right posterior superior thigh. This masses have never been drained and never drained on its own. They wax and wane in size. They are painful to touch. It is especially painful for her to sit. Patient is requesting resection, and understands that there will be a scar. Patient Denies any personal or family history of any melanoma or any other types of skin cancers. Patient does not smoke, is not a diabetic, and does not take blood thinners. Referred by dermatology for resection. ROS: CONSTITUTIONAL: no malaise, no significant weight changes, no excessive fatigue, no fevers or chills EYES: no visual complaints ENT: no changes in hearing vision nasal problems or hoarseness CARDIOVASCULAR: no chest pain and leg swelling RESPIRATORY: no chronic cough wheezing or shortness of breath GI: no abdominal pain nausea vomiting or diarrhea PSYCHIATRIC: no change from baseline HEMATOLOGIC: no excessive bleeding INTEGUMENTARY: As noted in HPI PAST MEDICAL HISTORY: There is no problem list on file for this patient. PAST SURGICAL HISTORY: No past surgical history on file. SOCIAL HISTORY: Social History Tobacco Use Smoking status: Never Substance Use Topics Alcohol use: Never Drug use: Never FAMILY HISTORY: No family history on file. I have reviewed the following sections of the chart: Family History. MEDICATIONS: Outpatient Medications Marked as Taking for the 03/22/25 encounter (Consult) with KATT Castillo Medication Sig Dispense Refill atorvastatin (LIPITOR) 20 mg tablet Take 1 tablet (20 mg total) by mouth. FLUoxetine (PROzac) 10 mg capsule Take 1 capsule (10 mg total) by mouth. methenamine hippurate (HIPREX) 1 gram tablet Take 1 tablet (1 g total) by mouth. PHYSICAL EXAM: Visit Vitals BP (!) 141/86 Pulse 84 Ht 1.562 m (61.5 ) Wt 66.8 kg (147 lb 3.2 oz) BMI 27.36 kg/m?? Smoking Status Never BSA 1.67 m?? Head atraumatic Right scalp and superior scalp single, Firm, tender, mobile mass, overlying skin slightly pigmented No central pore No scars in the area of concern Right posterior superior thigh single 1 x 1 cm tender skin colored lesion without central pore APPEARANCE: Normal EYES: Pupils, conjunctiva and sclera normal. EARS: normal MOUTH/THROAT: normal without lesions NECK: Neck supple LUNG: NO labored breathing NEURO: Awake, alert and oriented x 3 PSYCHIATRIC: Mood and affect are normal SKIN: as noted above LABS / PATHOLOGY: Maternal Child Nurse note reviewed IMAGING: IMPRESSION: 1. Epidermal inclusion cyst 2. Pilar cyst of scalp PLAN: 1. Lala Shen is a 74 y.o. female presenting with a 2 year history of a painful mass in right scalp, superior scalp and right posterior superior thigh Discussed the pathophysiology of epidermal inclusion cysts/pilar cysts. Discussion of risks and benefits including recurrence, location of scar, poor wound healing and infection were discussed with the patient. After hearing these risks and benefits, she would like to proceed with surgical resection. We will proceed. Will discuss with Dr. Bueno. documented in this encounter Plan of Treatment Not on file documented as of this encounter Visit Diagnoses Diagnosis Epidermal inclusion cyst- Primary Sebaceous cyst Pilar cyst of scalp documented in this encounter Historical Medications * This list may reflect changes made after this encounter. methenamine hippurate (HIPREX) 1 gram tablet Take 1 tablet (1 g total) by mouth. 04/15/2021 FLUoxetine (PROzac) 10 mg capsule Take 1 capsule (10 mg total) by mouth. 04/15/2021 atorvastatin (LIPITOR) 20 mg tablet Take 1 tablet (20 mg total) by mouth. 04/15/2021 added in this encounter Care Teams Senior Qa Tester Relationship Specialty Start Date End Date Lala Jama MD [address] [place] [address] PCP - General Internal Medicine 03/21/25 documented as of this encounter
== END 2025-03-23 09:35 | disposition home or self-care (01) ==
LOC: HO.HMCC 08:51
PROVIDERS: Visit Provider Internal Medicine
DX: E78.5 Hyperlipidemia, unspecified (principal); F41.9 Anxiety disorder, unspecified; F32.9 Major depressive disorder, single episode, unspecified; M85.80 Other specified disorders of bone density and structure, unspecified site

== ENCOUNTER 2025-03-23 08:50 | Outpatient (REF) | payer MEDICARE, SELFPAY ==
--- OUTSIDE RECORDS SUMMARY | 2025-03-23 10:40 | XMS_ITS | Encounter Summary ---
Author Organization 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 Bueno, a Board Certified Plastic and Reconstructive Surgeon. We will call you to schedule this procedure LOCATION: [facility] OFFICE [address] [place] [address] The Procedure [address] take [address] at the [...] any questions or concerns you may have. [phone] * KATT Castillo - 03/22/2025 9:00 AM EDT Images from the original note were not included. 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 Epidermal inclusion [...] 04/15/2021 added in this encounter Care Teams Cook Barbecue Relationship Specialty Start Date End Date Lala Jama MD PCP - General Internal Medicine 03/21/25 documented as of this encounter
--- OUTSIDE RECORDS SUMMARY | 2025-03-23 10:40 | XMS_ITS | Clinical Summary ---
Author Organization [address] [facility] Address [address] [place] [address] Phone Care Team Providers Care Label Operator Name Role Phone Lala Jama MD Primary Care Provider Allergies No known active allergies Medications pantoprazole [...] EDT Consult Plastic & Reconstructive Surgery - [place] [address] [place] [phone] Vladislav Mixon PA Epidermal inclusion cyst (Primary [...] patient's age to complete this topic Insurance [facility] MEDICARE Care Teams Label Operator Relationship Specialty Start Date End Date Lala Jama MD PCP - General Internal Medicine 03/21/25
[2025-03-23 13:06] LABS: MANUAL DIFF FLAG NO
[2025-03-23 13:15] LABS: Basophils Percent Auto 0.6 % (0-2); Eosinophils Absolute Auto 0.7 X10*3/uL (0.0-0.4); Eosinophils Percent Auto 12.7 % (0-4); Hematocrit 40.6 % (37.0-47.0); Hemoglobin 13.4 g/dl (12.0-16.0); Imm Gran Abs Auto 0.01 X10*3/uL (0.00-0.03); Imm Gran Pct Auto 0.2 % (0.0-0.4); Lymphocytes Percent Auto 36.5 % (20-40); Mean Corpuscular Hemoglobin 28.9 pg (27.0-33.0); Mean Corpuscular Volume 87.7 fL (80.0-98.0); Mean Platelet Volume 9.6 fL (9.4-12.3); Monocytes Absolute Auto 0.4 X10*3/uL (0.1-1.2); Monocytes Percent Auto 7.6 % (2-11); Neutrophils Absolute Auto 2.3 x10*3/uL (2.0-8.3); Neutrophils Percent Auto 42.4 % (45-73); Platelet Count 255 X10*3/uL (160-400); Red Blood Count 4.63 X10*6/uL (4.20-5.50); Red Cell Distribution Width 12.7 % (11.0-16.0); White Blood Count 5.4 X10*3/uL (4.8-10.8)
[2025-03-23 13:43] LABS: Alanine Aminotransferase 50 U/L (0-31); Albumin Level 4.4 g/dL (3.5-5.0); Alkaline Phosphatase 41 U/L (39-117); Anion Gap 11 (12-20); Aspartate Amino Transferase 39 U/L (5-31); Bilirubin Total 0.5 mg/dL (0.0-1.0); Blood Urea Nitrogen 14 mg/dL (9-16); Calcium 9.3 mg/dL (8.4-10.2); Carbon Dioxide 28 mmol/L (22-29); Chloride 106 mmol/L (96-108); Cholesterol 225 mg/dL (<200); Estimated Glomerular Filt Rate > 60; Glucose Fasting 91 mg/dL (60-99); HDL Cholesterol 75 mg/dL (>40); LDL Cholesterol Calculated 139 mg/dL (<100); Potassium 4.2 mmol/L (3.3-5.1); Sodium 141 mmol/L (135-145); Total Protein 7.1 g/dL (6.5-8.0); Triglycerides 55 mg/dL (<150)
[2025-03-23 13:50] LABS: TSH reflex Free T4 0.63 uIU/mL (0.32-4.0); Vitamin D 25-OH Total 54.4 ng/mL (>30)
== END 2025-03-23 08:51 | disposition home or self-care (01) ==
LOC: HO.HMGCLDS 08:50
PROVIDERS: PCP Internal Medicine; Visit Provider Internal Medicine
DX: E78.5 Hyperlipidemia, unspecified (principal); F41.9 Anxiety disorder, unspecified; F32.9 Major depressive disorder, single episode, unspecified; M85.80 Other specified disorders of bone density and structure, unspecified site
CPT/HCPCS: 36415; 80053; 80061; 82306; 84443; 85025; 99212

== ENCOUNTER 2025-05-16 11:00 | Outpatient (REF) | payer MEDICARE, SELFPAY ==
--- OUTSIDE RECORDS SUMMARY | 2025-05-15 11:00 | XMS_ITS | Encounter Summary ---
Author Organization [facility] Address [address] [place] [address] Care Team Providers Care Contract Consultant Name Role Phone Lala Jama MD Primary Care Provider [phone] Encounter Details Date Type Department Care Team (Latest Contact Info) Description 05/15/2025 11:00 AM EDT Office Visit Plastic & Reconstructive Surgery - [place] [address] [place] [address] Vladislav Mixon PA [address] [place] [address] Aftercare following surgery of the skin or subcutaneous tissue (Primary Dx) Social History Tobacco Use Types Packs/Day Years Used Date Smoking Tobacco: Never Alcohol Use Standard Drinks/Week Comments Never 0 (1 standard drink = 0.6 oz pur e alcohol) Comments Unknown Sex and Gender Information Value Date Recorded Sex Assigned at Not on file Legal Sex Female 1:31 PM EST Gender Identity Not on file Sexual Orientation Not on file documented as of this encounter Progress Notes * KATT Castillo - 05/15/2025 11:00 AM EDT PATIENT: Lala Shen ENCOUNTER: 05/15/2025 EMRN: [id number] : 1950 CHIEF COMPLAINT: No chief complaint on file. HPI: Lala Shen is a 74 y.o. female s/p lesion resection from scalp x 2 and right posterior thigh with intermediate closure to the area last week. Here today for suture removal. No complaints or issues. Denies any fever, chills, discharge, or any other signs of infection to the incision site. Has been applying vaseline ointment to the area daily. Pathology: Final Diagnosis A. Skin, right scalp, excision: Trichilemmal cyst B. Skin, right posterior scalp, excision: Trichilemmal cyst C. Skin, right thigh, posterior, excision: Lipoma I have reviewed the following sections of the chart: Patient Active Problem List Diagnosis Epidermal inclusion cyst Pilar cyst of scalp Lipoma of right lower extremity PHYSICAL EXAM: Visit Vitals Smoking Status Never On physical exam, incision sites are pink and healing appropriately. All areas of the surgical sites appear pink and viable. No signs of necrosis. No redness, swelling, discharge, or any other signs of infection. All sutures removed. ASSESSMENT/PLAN: 1. Aftercare following surgery of the skin or subcutaneous tissue 74 y.o. female 1 week follow-up status post lesion resection. Pathology shows that all lesions removed in its entirety with uninvolved margins Pathology report and results were discussed with the patient to patient's full understanding. Patient given copy. All sutures removed and vaseline applied to the incision site. Patient given postop care sheet to go. Advised to continue vaseline for 2-3 days and to make sure to wear sunscreen if out in the sun. Discussed the role of scar massage for wound healing. Patient will follow up on an as needed basis. Will discuss with Dr. Bueno. documented in this encounter Plan of Treatment Upcoming Encounters Date Type Department Care Team (Late st Contact Info) Description 06/13/2025 11:00 AM EDT Consult Vascular Surgery - [place] [address] [place] [phone] [facility]ila [facility]abb MD [facility] [address] [place] [address] documented as of this encounter Visit Diagnoses Diagnosis Aftercare following surgery of the skin or subcutaneous tissue- Primary Aftercare following surgery of the skin and subcutaneous tissue, NEC documented in this encounter Care Teams Contract Consultant Relationship Specialty Start Date End Date Lala Jama MD PCP - General Internal Medicine 03/21/25 documented as of this encounter
[2025-05-16 13:41] LABS: Alanine Aminotransferase 34 U/L (0-31); Albumin Level 4.4 g/dL (3.5-5.0); Alkaline Phosphatase 40 U/L (39-117); Aspartate Amino Transferase 30 U/L (5-31); Bilirubin Direct 0.1 mg/dL (0.0-0.5); Bilirubin Total 0.4 mg/dL (0.0-1.0); Total Protein 6.7 g/dL (6.5-8.0)
== END 2025-05-16 11:01 | disposition home or self-care (01) ==
LOC: HO.HMGCLDS 11:00
PROVIDERS: PCP Internal Medicine; Visit Provider Internal Medicine
DX: R79.89 Other specified abnormal findings of blood chemistry (principal)
CPT/HCPCS: 36415; 80076

== ENCOUNTER 2025-05-18 14:01 | Outpatient (AMB) | payer MEDICARE, SELFPAY ==
[2025-05-18 14:18] VITALS: BP 110/66; PULSE 87; RESP 18; TEMP 36.7; O2SAT 98; BMI 27.4
--- NOTE | 2025-05-18 14:18 | MHC.PC.OV ---
Vital Signs 05/18/25 14:18 Height 5 ft 2 in Weight 150 lb BMI 27.4 BP 110/66 Blood Pressure Location Lt brachial Position Sitting Respiration 18 Pulse 87 Pulse Source Pulse Oximeter Temp 98.0 F Temp Source Oral Pulse Oximetry (%) 98 Oxygen Delivery Method Room Air Intake Visit Reasons: Follow up on labs Intake Note: Pt is here today for a follow up visit on labs. Allergies No Known Allergies Allergy (Verified 05/18/25 14:19) Medication List - Last Reconciled 05/18/25 by Lala Jama MD acyclovir 5% 1 appl topical 6XD aspirin 81 mg PO DAILY atorvastatin 20 mg PO DAILY denosumab 60 mg subcut [id number] denosumab (Prolia) 60 mg subcut [id number] fluoxetine 20 mg PO DAILY meclizine (Medi-Meclizine) 25 mg PO TID methenamine hippurate 1 g PO BID pantoprazole 20 mg PO DAILY Tobacco use date assessed: 05/18/25 Fall risk assessment: No Falls in past year Last assessed Fall Risk: 05/18/25 Dental Screening Dental Screen Date: 02/10/25 HPI Follow up on labs HPI Details Pt presents for f/u. She had a blood test with borderline elevated LFTs 1 month repeat LFTs were normal. Patient admits to eating sweets but otherwise she has not been drinking alcohol taking and NSAIDs. Patient complains of chronic insomnia and anxiety. She's increased fluoxetine to 20 mg a day last week. Patient is not interested in counseling [facility] Medical History (Updated 05/18/25 @ 15:20 by Lala Jama MD) Carpal tunnel syndrome on both sides Lip lesion Vertigo Annual physical exam Screen for colon cancer Cervical radiculopathy (~08/20/21) Neck pain Sciatica Nephrolithiasis Osteopenia Anxiety and depression Hyperlipidemia Surgical History History of oophorectomy, unilateral History of back surgery History of section H/O colonoscopy Family History Father Heart attack Mother Cancer Brother No problems noted. Son No problems noted. Daughter No problems noted. Social History Housing: House Alcohol intake: never Patient Tobacco Use Status: Never used Tobacco e-Cigarette/Vaping Use: Never Used service: No Current occupational status: retired Cognitive needs: No Hearing needs: No Vision needs: Yes Questionnaire Thrive Questionnaire Date Thrive assessed: 02/10/25 I am a: Patient What is your living situation today?: I have a steady place to live Within the past 12 months, did the food you bought not last and you didn't have the money to get more?: Never true Within the past 12 months, did you worry whether your food would run out before you got money to buy more?: Never true Do you have trouble paying for medicines?: No Do you have trouble getting transportation to medical appointments?: No Do you have trouble paying your heating and electricity bill?: No Do you have trouble taking care of your child, family member or friend?: No Do you have trouble with day-to-day activities such as bathing, preparing meals, shopping, managing finances, etc.?: No Are you currently unemployed and looking for a job?: No Are you interested in more education?: No Please select the resources that you would like help with: None Currently or been in a relationship where the following occur: No concerns reported THRIVE Score: 0 AUDIT C Alcohol Use Questionnaire (AUDIT-C) 1. How often do you have a drink containing alcohol?: Never 3. How often do you have six or more drinks on one occasion?: Never Total Score: 0 MICHEL-7 AMB Questionnaire MICHEL-7 Date MICHEL - 7 assessed: 02/10/25 Source: Developed by Drs. Lyle Ramirez, Francisca Jonas, Nicolas Arias and colleagues, with an educational galen from [employer]. Review of Systems Const All systems reviewed & are unremarkable except as noted in HPI and below ENT Reports no additional complaints Card Reports no additional complaints Resp Reports no additional complaints GI Reports no additional complaints Reports no additional complaints Physical exam (Primary Care) Vital Signs: Last Vital Signs Temp 98.0 F 05/18/25 14:18 Pulse 87 05/18/25 14:18 Resp 18 05/18/25 14:18 BP 110/66 05/18/25 14:18 Pulse Ox 98 05/18/25 14:18 Oxygen Delivery Method Room Air 05/18/25 14:18 BMI result Body Mass Index 27.4 Tobacco/Smoking Status: Tobacco use Status Tobacco use date assessed 05/18/25 05/18/25 14:19 Patient Tobacco Use Status Never used Tobacco 05/18/25 14:19 e-Cigarette/Vaping Use Never Used 05/18/25 14:19 Thrive Assessment: Date of Thrive Assessment Date Thrive assessed 02/10/25 05/18/25 14:19 Currently or been in a relationship where the following occur: No concerns reported Const General: no acute distress Eyes General: appearance normal, both eyes and all related structures Resp Effort & Inspection: normal respiratory effort Auscultation: clear to auscultation bilaterally Cardio Rhythm: regular rhythm Heart sounds: S1 normal heart sound present and S2 normal heart sound present GI Inspection: Yes normal to inspection Palpation (GI): Soft to palpation Percussion: Yes normal to percussion Auscultation: normal bowel sounds Coding Level of Care Code Est Pt Level 4 (37418) Diagnoses Elevated LFTs R79.89 Anxiety and depression F41.9; F32.9 Hyperlipidemia E78.5 Assessment & Plan Assessment & Plan (1) Elevated LFTs: Comment: Borderline Code(s): R79.89 - Other specified abnormal findings of blood chemistry Category: Medical Plan: Obtain liver ultrasound to evaluate. Low simple carbohydrate diet discussed with the patient we will continue to monitor LFT (2) Anxiety and depression: Code(s): F41.9 - Anxiety disorder, unspecified; F32.9 - Major depressive disorder, single episode, unspecified Category: Medical Plan: Continue fluoxetine, stress management discussed with the patient (3) Hyperlipidemia: Code(s): E78.5 - Hyperlipidemia, unspecified Category: Medical Plan: Continue atorvastatin Orders: Orders US abdomen limited Today R79.89 - Other specified abnormal findings of blood chemistry Medications: Discontinued denosumab Discontinued Reason: Doctor's Order 60 mg subcut [id number] 1 mL 1RF
== END 2025-05-18 15:21 | disposition home or self-care (01) ==
LOC: HO.HMCC 14:02
PROVIDERS: PCP Internal Medicine; Visit Provider Internal Medicine
DX: R79.89 Other specified abnormal findings of blood chemistry (principal); F41.9 Anxiety disorder, unspecified; F32.9 Major depressive disorder, single episode, unspecified; E78.5 Hyperlipidemia, unspecified

== ENCOUNTER → 2025-05-18 14:01 | Outpatient (BNVA) | payer MEDICARE, SELFPAY | PROVIDERS: PCP Internal Medicine; Visit Provider Internal Medicine | DX: R79.89 Other specified abnormal findings of blood chemistry (principal); F41.9 Anxiety disorder, unspecified; F32.9 Major depressive disorder, single episode, unspecified; E78.5 Hyperlipidemia, unspecified | CPT/HCPCS: 99212 ==

== ENCOUNTER 2025-06-27 08:08 | Outpatient (REF) | payer MEDICARE, SELFPAY ==
--- NOTE | ~2025-06-27 | US_ITS ---
CLINICAL HISTORY: R79.89 - Other specified abnormal findings of blood chemistry US abdomen limited Comparison: None provided Findings: The pancreas is normal. The visualized IVC is patent. The visualized abdominal aorta is normal in caliber. The liver is normal in size, right lobe length is 15.2 cm. Normal in echogenicity, no discrete lesion is visualized in the imaged liver. No bile duct dilatation. Common duct 3 mm diameter. Underdistended gallbladder, no stone or sludge, scattered area of adenomyomatosis noted. No gallbladder wall thickening. Negative sonographic Alcaraz's sign. Main portal vein shows antegrade flow. Right kidney is mildly small with mild cortical thinning, 8.7 cm in length, otherwise normal. No free fluid in the right upper quadrant of the abdomen. Impression: 1. Gallbladder adenomyomatosis. 2. Mildly atrophic right kidney. This document has been electronically signed by: Ruth Reese MD on 06/27/2025 13:43:40
--- OUTSIDE RECORDS SUMMARY | 2025-06-27 08:14 | XMS_ITS | Clinical Summary ---
Author Organization 175 [facility] Address [address] [place] [address] Phone Care Team Providers Care Fire And Safety Helper Name Role Phone Lala Jama MD Primary Care Provider [phone] Allergies Active Allergy Reactions Criticality Noted Date Comments Avocado Swelling 06/13/2025 Medications atorvastatin (LIPITOR) 20 mg tablet Take 1 tablet (20 mg total) by mouth. 04/15/20 21 Active FLUoxetine (PROzac) 10 mg capsule Take 1 capsule (10 mg total) by mouth. 04/15/20 21 Active methenamine hippurate (HIPREX) 1 gram tablet Take 1 tablet (1 g total) by mouth. 04/15/20 21 Active pantoprazole (PROTONIX) 20 mg EC tablet Take 1 tablet (20 mg total) by mouth 1 (one) time each day before breakfast. 90 each 06/05/20 25 025 Active pantoprazole (PROTONIX) 20 mg EC tablet TAKE ONE TABLET BY MOUTH EVERY MORNING ON AN EMPTY STOMACH, WAIT 30 MINUTES AND THEN EAT TO ACTIVATE MEDICATION 30 tablet 2 03/16/20 25 025 Discontinued Active Problems Problem Noted Date Diagnosed Date Epidermal inclusion cyst 05/04/2025 Pilar cyst of scalp 05/04/2025 Lipoma of right lower extremity 05/04/2025 Encounters Date Type Department Care Team Description 06/13/2025 11:00 AM EDT Consult Vascular Surgery - [place] [address] [place] [phone] Nila Babb MD Asymptomatic varicose veins of left lower extremity (Primary Dx) 05/15/2025 11:00 AM EDT Office Visit Plastic & Reconstructive Surgery [facility] [address] [facility] [address] [place] [phone] Vladislav Mixon PA Aftercare following surgery of the skin or subcutaneous tissue (Primary Dx) 05/04/2025 9:00 AM EDT Procedure visit Plastic & Reconstructive Surgery [facility] [address] [facility] [address] [place] [phone] Boogie Bueno DO Epidermal inclusion cyst (Primary Dx); Pilar cyst of scalp; Lipoma of right lower extremity 04/21/2025 Telephone General Surgery [facility] [address] [facility] [address] [place] [phone] Boogie Bueno DO authorization (04/21/2025 Meicare/BCBS) 04/13/2025 Telephone General Surgery [facility] [address] [facility] [address] [place] [phone] Boogie Bueno DO surgery letter (04/13/2025 mailed letter) from Last 3 Months Medical History Medical [...] Sign Reading Time Taken Comments Blood Pressure 118/75 06/13/2025 10:53 AM EDT Pulse 70 06/13/2025 10:53 AM EDT Temperature - - Respiratory Rate - - Oxygen Saturation - - Inhaled Oxygen Concentration - - Weight 67.6 kg (149 lb) 06/13/2025 10:53 AM EDT Height 154.9 cm (5' 1 ) 06/13/2025 10:53 AM EDT Body Mass Index 28.15 06/13/2025 10:53 AM EDT Plan of Treatment Upcoming Encounters Date Type Department Care Team (Late st Contact Info) Description 08/25/2025 1:40 PM EDT Office Visit Gastroenterology - [place] [address] [facility] [address] [place] [phone] Viktoriya Land, ANISH 175 [facility] [address] [place] [address] Health Maintenance Due Date Last Done Comments Breast Cancer Screening 1950 DTaP,Tdap,and Td Vaccines (1 - Tdap) 1969 Pneumococcal Vaccine: 50+ Years (1 of 1 - PCV) 2000 Zoster Vaccines (1 of 2) 2000 Colorectal Cancer Screening: Colonoscopy 11/02/2022 Falls Risk Assessment 11/02/2022 Hepatitis C Screening 11/02/2022 Medicare Annual Wellness Visit 11/02/2022 Osteoporosis Screening (Bone Density Screening) 11/02/2022 Social Influencers of Health Screening 11/02/2022 COVID-19 Vaccine (1 - 2023-2 5 season) 2024 Depression Screening 11/23/2024 RSV Immunization Adult Patients (1 - 1-dose 75+ series) 2025 Influenza Vaccine (#1) 2025 9, 07/29/2018 HIB Vaccines Aged Out No longer [...] on patient's age to complete this topic Procedures Procedure Name Priority Date/Time Associated Diagnosis Comments TISSUE EXAM Routine 05/04/2025 9:44 AM EDT Epidermal inclusion cyst Pilar cyst of scalp from Last 3 Months Results * Tissue Exam (05/04/2025 9:44 AM EDT) Final Diagnosis A. Skin, right scalp, excision: Trichilemmal cyst B. Skin, right posterior scalp, excision: Trichilemmal cyst C. Skin, right thigh, posterior, excision: Lipoma 05/05/2025 5:58 PM EDT [facility] Clinical Information Epidermal inclusion cyst (L72.0) Pilar cyst of scalp (L72.11) 05/05/2025 5:58 PM EDT [facility] Gross Description A. Scalp, excision lesion right: Labeled scalp and additionally R scalp on the top of the lid . Received in formalin is an unoriented, focally disrupted, 0.8 x 0.2 x 0.2 cm stone skin ellipse and subcutis. The margin is inked blue. The specimen is serially sectioned sequentially and submitted in entirety in two cassettes. 1-en face tips, two pieces 2-central sections, two pieces B. Scalp, excision lesion right posterior: Labeled scalp and additionally post scalp on the top of the lid . Received in formalin is an unoriented, focally disrupted, 0.5 x 0.2 cm stone, hair-bearing skin ellipse excised to a depth of 0.5 cm. The subcutaneous tissue contains a 0.4 cm in greatest diameter smooth-walled, unilocular cyst which contains white, friable material, some of which is attached to the cyst lining. Due to the disruption, the margins are not inked. The specimen is submitted in entirety in one cassette, two pieces. C. Thigh, Right, excision lesion right posterior: Labeled thigh and additionally R thigh posterior on the top of the lid) . Received in formalin is a soft, yellow, 2.3 x 1.0 x 0.5 cm encapsulated grossly fatty mass which is surfaced by a 1.1 cm in greatest diameter stone-white skin ellipse. The margins are inked blue and the specimen is sections. The cut surfaces are soft, yellow, lobular and glistening. Planning Coordinator sections are submitted in one cassette, three pieces. TS 05/05/2025 5:58 PM EDT [facility] Disclaimer Unless otherwise specified, all tissue is 10% NB formalin fixed and paraffin embedded. 05/05/2025 5:58 PM EDT [facility] Tissue Structure of right thigh / Unknown Non-blood Collection / Unknown 05/04/2025 9:44 AM EDT 05/04/2025 9:46 AM EDT Tissue specimen (specimen) Scalp structure / Unknown 05/04/2025 9:44 AM EDT 05/04/2025 9:46 AM EDT Tissue specimen (specimen) Structure of right thigh / Unknown 05/04/2025 9:44 AM EDT 05/04/2025 9:46 AM EDT Boogie Bueno DO LAB PATHOLOGY ORDERABLES Fin al Result [facility] [address] [place] [address], from Last 3 Months Insurance [facility] MEDICARE Care Teams Fire And Safety Helper Relationship Specialty Start Date End Date Lala Jama MD PCP - General Internal Medicine 03/21/25
== END 2025-06-27 08:09 | disposition home or self-care (01) ==
LOC: HO.HMGCX 08:08
PROVIDERS: PCP Internal Medicine; Visit Provider Internal Medicine
DX: R79.89 Other specified abnormal findings of blood chemistry (principal)
CPT/HCPCS: 76705

== ENCOUNTER → 2025-06-27 08:16 | Outpatient (BNV) | payer MEDICARE, SELFPAY | PROVIDERS: PCP Internal Medicine; Visit Provider Radiology Diagnostic Radiology | DX: K82.8 Other specified diseases of gallbladder (principal) | CPT/HCPCS: 76705 ==

== ENCOUNTER 2025-10-09 09:13 | Outpatient (AMB) | payer MEDICARE, SELFPAY ==
[2025-10-09 09:29] VITALS: BP 126/64; PULSE 70; RESP 16; TEMP 36.6; O2SAT 99; BMI 27.1
--- NOTE | 2025-10-09 09:29 | AM.OFFVISMDC ---
Intake Vital Signs 10/09/25 09:29 Height 5 ft 2 in Weight 148 lb BMI 27.1 BP 126/64 Blood Pressure Location Lt brachial Position Sitting Respiration 16 Pulse 70 Pulse Source Pulse Oximeter Temp 97.9 F Temp Source Oral Pulse Oximetry (%) 99 Oxygen Delivery Method Room Air Intake Visit Reasons: AWV G0439 Intake Note: Pt is here today for AWV. Pt states that she has been having burning when urinating and chills. Allergies No Known Allergies Allergy (Verified 10/09/25 09:30) Medication List - Last Reconciled 10/09/25 by Lala Jama MD acyclovir 5% 1 appl topical 6XD alpha lipoic acid 600 mg PO DAILY atorvastatin 20 mg PO DAILY fluoxetine 20 mg PO DAILY lemon balm mg PO DAILY meclizine (Medi-Meclizine) 25 mg PO TID melatonin PO methenamine hippurate 1 g PO BID pantoprazole 20 mg PO DAILY Prolia (denosumab) 60 mg subcut [id number] NS vitamin B complex 1 cap PO DAILY HPI AWV G0439 HPI Details Initiated the conversation about Advanced Directives. Advanced Directives help? patients prepare for current and future decisions about their medical treatment? and place of care. Discussed with patient that it is a process where a patients? current condition and prognosis are reviewed, their wishes for information? regarding their illness are elicited, and likely medical dilemmas are presented? and options discussed. The form can be amended as needed, reviewed yearly and? make changes as needed HPI Comments History of Present Illness Details IPPE/AWV ? year old presents? for her ? Annual? Wellness Visit, initial visit.? Medical / Social History Reviewed? Past Medical History ?Yes? . ? [place]? of Care / Care Team list updated ?Yes . ? Surgical/Hospitalization? History ?Yes . ? Current Medications? (including OTC and supplements) ?Yes . ? Family History ?Yes? . ? Tobacco? Control form ?Yes . ? AUDIT-C (Alcohol use) form? ?Yes . ? Illicit drug use in Social? History ?Yes . ? Current diagnosis of? depression? ?No ? Appropriate PHQ2/PHQ9? completed ?Yes . ? Data entered by ?Medical? Medical Transport Specialist and reviewed by provider ? Fall Risk ? Fall? History? Have you had any falls with? injury in the past year? ?No . ? Have you had two or more? falls in the past year? ?No . ? Fall Risk Assessment: ?No? falls in the past year . ? HRA filled out by? the patient, reviewed by Provider and scanned. ? IPPE/AWV ? Balance? Romberg? ?Yes . ? Tandem? walk ?Yes . ? Walk and? Turn ?Yes . ? Rise from? sit to stand ?Yes . ?Vision? Corrective? lens ?Yes ? Vision? screen ? Up-to-date, has an appointment [] for vision? screening and glaucoma screening ?Hearing? Whisper? test ?pass .? Initiated the conversation about Advanced Directives. Advanced Directives help? patients prepare for current and future decisions about their medical treatment? and place of care. Discussed with patient that it is a process where a patients? current condition and prognosis are reviewed, their wishes for information? regarding their illness are elicited, and likely medical dilemmas are presented? and options discussed. The form can be amended as needed, reviewed yearly and? make changes as needed Written? Plan?Completed. See Patient? Documents. Initiated the conversation about Advanced Directives. Advanced Directives help? patients prepare for current and future decisions about their medical treatment? and place of care. Discussed with patient that it is a process where a patients? current condition and prognosis are reviewed, their wishes for information? regarding their illness are elicited, and likely medical dilemmas are presented? and options discussed. The form can be amended as needed, reviewed yearly and? make changes as needed [facility] Medical History (Updated 10/09/25 @ 10:13 by Lala Jama MD) Carpal tunnel syndrome on both sides Lip lesion Vertigo Annual physical exam Screen for colon cancer Cervical radiculopathy (~08/20/21) Neck pain Sciatica Nephrolithiasis Osteopenia Anxiety and depression Hyperlipidemia Surgical History History of oophorectomy, unilateral History of back surgery History of section H/O colonoscopy Family History Father Heart attack Mother Cancer Brother No problems noted. Son No problems noted. Daughter No problems noted. Social History Housing: House Alcohol intake: never Patient Tobacco Use Status: Never used Tobacco e-Cigarette/Vaping Use: Never Used service: No Current occupational status: retired Cognitive needs: No Hearing needs: No Vision needs: Yes Questionnaire Medicare Wellness Checkup [age] What gender do you identify with?: female During the past 4 weeks, how much have you been bothered by emotional problems such as feeling anxious, depressed, irritable, sad or downhearted, and blue?: not at all During the past 4 weeks, has your physical & emotional health limited your social activities with family, friends, neighbors, or groups?: not at all During the past 4 weeks, how much bodily pain have you generally had?: no pain During the past 4 weeks, was someone available to help you if you needed & wanted help?: yes, as much as I wanted During the past 4 weeks, what was the hardest physical activity you could do for at least 2 minutes?: heavy Can you get to places out of walking distance without help? (For eg., can you travel alone on buses, taxis or drive your car?): Yes Can you go shopping for groceries or clothes without someone's help?: Yes Can you prepare your own meals?: Yes Can you do your housework without help?: Yes Because of any health problems, do you need the help of another person with your personal care needs such as eating, bathing, dressing or getting around the house?: No Can you handle your own money without help?: Yes During the past 4 weeks, how would you rate your health in general?: very good During the past 4 weeks how have things been going for you?: very well; could hardly better Are you having difficulties driving your car?: no Do you always fasten your seat belt when you are in a car?: yes, usually During past 4 weeks, have you been bothered by the following: never: Falling or dizzy when standing up, Sexual problems?, Trouble eating well?, Teeth or denture problems?, Problems using the telephone? and Tiredness or fatigue? Have you fallen 2 or more times in the past year?: No Are you afraid of falling?: No Are you a smoker?: no During the past 4 weeks, how many drinks of wine, beer, or other alcoholic beverages did you have?: no alcohol at all Do you exercise for about 20 minutes 3 or more times a week?: yes, some of the time Have you been given information to help with the following?: yes: Hazards in your house that might hurt you? and yes: Keeping track of your medications? How often do you have trouble taking medicines the way you have been told to take them?: I always take medicine as prescribed How confident are you that you can control & manage most of your health problems?: very confident What is your race?: White Mini Mental State Exam (MMSE) Orientation What is the (year) (season) (date) (day) (month)?: year, season, date, day and month Where are we (state) (county) (town or city) (hospital) (floor)?: state, county, town or city, hospital/clinic and floor Registration Name of 3 unrelated objects clearly and slowly, then ask patient to repeat all 3 of them. (1st repeat determines score. Make sure they can repeat all three): object 1, object 2 and object 3 Attention & Calculation (CHOOSE ONE) Spell WORLD backwards (DLROW): 5 letters Recall Ask patient to repeat the 3 items from question #3.: object 1, object 2 and object 3 Language Show patient a wristwatch & ask what it is. Repeat for pencil.: watch and pencil Ask the patient to repeat the phrase 'No ifs, ands, or buts' after you.: correct Ask the patient to 'take a piece of paper with their right hand' 'fold paper in half' 'place paper on floor': take paper in right hand, fold paper in half and place paper on floor Print the sentence 'CLOSE YOUR EYES' on a piece. If patient actually closes eyes then score.: followed written direction Give patient a blank piece of paper & ask to write a sentence. Score if it contains a noun & verb.: sentence contains subject and verb Score Score: 29 PHQ-9 Over the last 2 weeks, how often have you been bothered by any of the following problems? 1. Little interest or pleasure in doing things: not at all 2. Feeling down, depressed, or hopeless: not at all 3. Trouble falling or staying asleep, or sleeping too much: not at all 4. Feeling tired or having little energy: not at all 5. Poor appetite or overeating: not at all 6. Feeling bad about yourself - or that you are a failure or have let yourself or your family down: not at all 7. Trouble concentrating on things, such as reading the newspaper or watching television: not at all 8. Moving or speaking so slowly that other people could have noticed. Or the opposite - being so fidgety or restless that you have been moving around a lot more than usual: not at all 9. Thoughts that you would be better off or of hurting yourself in some way: not at all Total score: 0 Depression Screening Interpretation: Negative Depression Screening Done: Yes Source: Developed by Drs. Lyle Ramirez, Francisca Jonas, Nicolas Arias and colleagues, with an educational galen from [employer]. Review of Systems Const All systems reviewed & are unremarkable except as noted in HPI and below Eyes Reports no additional complaints ENT Reports no additional complaints Card Reports no additional complaints Resp Reports no additional complaints GI Reports no additional complaints Reports no additional complaints Physical Exam Vital Signs: Last Vital Signs Temp 97.9 F 10/09/25 09:29 Pulse 70 10/09/25 09:29 Resp 16 10/09/25 09:29 BP 126/64 10/09/25 09:29 Pulse Ox 99 10/09/25 09:29 Oxygen Delivery Method Room Air 10/09/25 09:29 BMI result Body Mass Index 27.1 Const General: no acute distress HEENT Head: Yes normal to inspection Ears: hearing grossly normal bilaterally Eyes General: appearance normal, both eyes and all related structures Neck Neck: Yes no lymphadenopathy and Yes supple Resp Effort & Inspection: normal respiratory effort Auscultation: clear to auscultation bilaterally Cardio Rhythm: regular rhythm Heart sounds: S1 normal heart sound present and S2 normal heart sound present GI Inspection: Yes normal to inspection Palpation (GI): Soft to palpation Percussion: Yes normal to percussion Auscultation: normal bowel sounds Extrem General: Yes no clubbing, cyanosis or edema Assessment & Plan Assessment & Plan (1) Anxiety and depression: Code(s): F41.9 - Anxiety disorder, unspecified; F32.9 - Major depressive disorder, single episode, unspecified Plan: Continue fluoxetine, counseling was recommended but patient declined (2) Annual physical exam: Code(s): Z00.00 - Encounter for general adult medical examination without abnormal findings Plan: Well-balanced diet regular physical activity discussed with the patient she is up-to-date with the mammogram and colonoscopy. Patient will have fasting labs today (3) Vitamin D deficiency: Code(s): E55.9 - Vitamin D deficiency, unspecified Plan: Continue vitamin-D supplement (4) Osteopenia: Comment: DEXA 05/2019 osteopenia, Prolia inj since 2022 by Endo Code(s): M85.80 - Other specified disorders of bone density and structure, unspecified site Plan: Check DEXA after 2 years of taking Prolia, continue vitamin-D , Prolia and weight-bearing exercises. Orders: Orders Lipid Panel Today E55.9 - Vitamin D deficiency, unspecified, F32.9 - Major depressive disorder, single episode, unspecified, F41.9 - Anxiety disorder, unspecified, Z00.00 - Encounter for general adult medical examination without abnormal findings TSH reflex Free T4 Today E55.9 - Vitamin D deficiency, unspecified, F32.9 - Major depressive disorder, single episode, unspecified, F41.9 - Anxiety disorder, unspecified, Z00.00 - Encounter for general adult medical examination without abnormal findings Vitamin D 25-OH Total Today E55.9 - Vitamin D deficiency, unspecified, F32.9 - Major depressive disorder, single episode, unspecified, F41.9 - Anxiety disorder, unspecified, Z00.00 - Encounter for general adult medical examination without abnormal findings UA w Microscopic Today E55.9 - Vitamin D deficiency, unspecified, F32.9 - Major depressive disorder, single episode, unspecified, F41.9 - Anxiety disorder, unspecified, Z00.00 - Encounter for general adult medical examination without abnormal findings XR DEXA axial skeleton Today M85.80 - Other specified disorders of bone density and structure, unspecified site Comprehensive [place]. Panel Fast Today E55.9 - Vitamin D deficiency, unspecified, F32.9 - Major depressive disorder, single episode, unspecified, F41.9 - Anxiety disorder, unspecified, Z00.00 - Encounter for general adult medical examination without abnormal findings Complete Blood Count Auto Diff Today E55.9 - Vitamin D deficiency, unspecified, F32.9 - Major depressive disorder, single episode, unspecified, F41.9 - Anxiety disorder, unspecified, Z00.00 - Encounter for general adult medical examination without abnormal findings Medications: Changed From denosumab (Prolia) 60 mg subcut [id number] To Prolia (denosumab) 60 mg subcut [id number] 1 mL 2RF NS Quality Reporting (2019) Depression/Bipolar (159/160/161/177) PHQ-9: Total score: 0 Coding Level of Care Code Medicare Subsequent (G0439) Diagnoses Anxiety and depression F41.9; F32.9 Annual physical exam Z00.00 Vitamin D deficiency E55.9 Osteopenia M85.80 CPT Codes Advance Care Planning - Advance Care Planning discussion: On file, no changes ([id number]) Advance Care Planning - Time spent: 1-15 minutes, on File ([id number]) Advance Care Planning Advance Care Planning discussion: On file, no changes Forms completed: Health Care Proxy Time spent: 1-15 minutes, on File
== END 2025-10-09 10:31 | disposition home or self-care (01) ==
LOC: HO.HMCC 09:13
PROVIDERS: PCP Internal Medicine; Visit Provider Internal Medicine
DX: Z00.00 Encounter for general adult medical examination without abnormal findings (principal); F41.9 Anxiety disorder, unspecified; F32.9 Major depressive disorder, single episode, unspecified; E55.9 Vitamin D deficiency, unspecified; M85.80 Other specified disorders of bone density and structure, unspecified site

== ENCOUNTER 2025-10-09 09:13 | Outpatient (REF) | payer MEDICARE, SELFPAY ==
[2025-10-09 13:06] LABS: MANUAL DIFF FLAG NO
[2025-10-09 13:15] LABS: Appearance Urine Clear; Glucose Urine UA Negative (Negative); PH 8.0 (5.0-9.0); Specific Gravity - Urine 1.020 (1.005-1.025)
[2025-10-09 13:35] LABS: Hematocrit 39.9 % (37.0-47.0); Hemoglobin 13.0 g/dl (12.0-16.0); Imm Gran Abs Auto 0.01 X10*3/uL (0.00-0.03); Imm Gran Pct Auto 0.2 % (0.0-0.4); Lymphocytes Absolute Auto 1.7 X10*3/uL (1.2-4.9); Mean Corpuscular HGB Conc 32.6 g/dl (31.0-35.0); Mean Corpuscular Hemoglobin 28.6 pg (27.0-33.0); Mean Corpuscular Volume 87.9 fL (80.0-98.0); NRBC Abs Auto 0.000 X10*3/uL (0.0-0.012); NRBC Pct Auto 0.0 /100WBC (0.0-0.2); Platelet Count 242 X10*3/uL (160-400); Red Blood Count 4.54 X10*6/uL (4.20-5.50); White Blood Count 4.5 X10*3/uL (4.8-10.8)
[2025-10-09 14:11] LABS: Alanine Aminotransferase 29 U/L (0-31); Albumin Level 4.6 g/dL (3.5-5.0); Alkaline Phosphatase 40 U/L (39-117); Anion Gap 9 (12-20); Aspartate Amino Transferase 30 U/L (5-31); Blood Urea Nitrogen 13 mg/dL (9-16); Calcium 8.9 mg/dL (8.4-10.2); Carbon Dioxide 27 mmol/L (22-29); Chloride 108 mmol/L (96-108); Cholesterol 197 mg/dL (<200); Estimated Glomerular Filt Rate > 60; HDL Cholesterol 66 mg/dL (>40); Potassium 4.1 mmol/L (3.3-5.1); Sodium 140 mmol/L (135-145); Total Protein 7.0 g/dL (6.5-8.0); Triglycerides 74 mg/dL (<150)
--- OUTSIDE RECORDS SUMMARY | 2025-10-09 21:19 | XMS_ITS | Clinical Summary ---
Author Organization 175 [facility] Address [address] [place] [address] Phone Care Team Providers Care Development Vice President Name Role Phone Lala Jama MD Primary Care Provider [phone] Allergies Active Allergy Reactions Criticality Noted Date Comments Avocado Swelling 06/13/2025 Medications atorvastatin (LIPITOR) 20 mg tablet Take 1 tablet (20 mg total) by mouth. 04/15/2021 Active FLUoxetine (PROzac) 10 mg capsule Take 1 capsule (10 mg total) by mouth. 04/15/2021 Active methenamine hippurate (HIPREX) 1 gram tablet Take 1 tablet (1 g total) by mouth. 04/15/2021 Active pantoprazole (PROTONIX) 20 mg EC tablet Take 1 tablet (20 mg total) by mouth 1 (one) time each day before breakfast. 90 each 3 08/25/2025 Active Active Problems Problem Noted Date Diagnosed Date Epidermal inclusion cyst 05/04/2025 Pilar cyst of scalp 05/04/2025 Lipoma of right lower extremity 05/04/2025 Medical History Medical History Date Comments Functional [...] Care Team (Late st Contact Info) Description 10/26/2025 9:00 AM EST Office Visit Gastroenterology - [address] [facility] [address] [place] [address] Viktoriya Land, ANISH [address] [facility] [address] [place] [address] Health Maintenance Due Date Last Done Comments Colorectal Cancer Screening: Colonoscopy 1950 DTaP,Tdap,and Td Vaccines (1 - Tdap) 1969 Pneumococcal Vaccine: 50+ Years (1 of 1 - PCV) 2000 Zoster Vaccines (1 of 2) 2000 Falls Risk Assessment 11/02/2022 Hepatitis C Screening 11/02/2022 Medicare Annual Wellness Visit 11/02/2022 Osteoporosis Screening (Bone Density Screening) 11/02/2022 Social Influencers of Health Screening 11/02/2022 Depression Screening 11/23/2024 RSV Immunization Adult Patients (1 - 1-dose 75+ series) 2025 COVID-19 Vaccine ( - 2024-2 6 season) 2025 Influenza Vaccine (#1) 2025 07/29/2018 HIB Vaccines Aged Out No longer [...] patient's age to complete this topic Insurance [facility] MEDICARE Care Teams Development Vice President Relationship Specialty Start Date End Date Lala Jama MD PCP - General Internal Medicine 03/21/25
== END 2025-10-09 09:14 | disposition home or self-care (01) ==
LOC: HO.HMGCLDS 09:13
PROVIDERS: PCP Internal Medicine; Visit Provider Internal Medicine
DX: Z00.00 Encounter for general adult medical examination without abnormal findings (principal); F41.8 Other specified anxiety disorders; E55.9 Vitamin D deficiency, unspecified; M85.80 Other specified disorders of bone density and structure, unspecified site; Z13.6 Encounter for screening for cardiovascular disorders
CPT/HCPCS: 36415; 80053; 80061; 81001; 82306; 84443; 85025